=== PATIENT | female | born 1945 | race Caucasian/White ===

== ENCOUNTER → 2016-10-10 | Outpatient (CLI) | payer MEDICARE, BC ==
--- NOTE | 2016-10-10 13:17 | P.HPOB ---
History of Present Illness H&P Date: 10/10/16 Chief Complaint: The patient is here for her routine gynecologic exam and mammogram. This is a 71-year-old with an LMP of 1989. Her last pelvic exam was about 4 years ago. She denies any postmenopausal bleeding or pelvic pain. [facility]. She had an MRI of the lumbar spine without contrast on 08/14/2016. This did show a possible left ovarian cyst measuring approximately 3.6 cm. Review of Systems The patient has lost about 17 pounds since she was last here 4 years ago. She believes she gained about 20 pounds recently after being started on Lyrica. She denies respiratory cardiac or G.I. problems. She also denies maltreatment or falling. She denies any significant urinary leakage. Past Medical History Past Medical History: CVA/TIA, Fibromyalgia, GERD/Reflux, Hearing Disorder / Deafness, Osteoarthritis (OA), Rheumatoid Arthritis (RA) Additional Past Medical History / Comment(s): hx -sarcoidosis, TIA 3 yrs ago, pain in back and left shoulder, has [place] braces on feet-uses a cane. Also history of glaucoma and osteoporosis. She is status post greater than 3 years of Reclast bisphosphonate use. History of Any Multi-Drug Resistant Organisms: None Reported Past Surgical History: Heart Catheterization, Orthopedic Surgery Additional Past Surgical History / Comment(s): left knee replacement, sinus surgery. Also laser eye surgery for glaucoma and colonoscopy in approximately 2008. Past Anesthesia/Blood Transfusion Reactions: Postoperative Nausea & Vomiting ( PONV) Smoking Status: Never smoker Past Alcohol Use History: None Reported Past Drug Use History: None Reported Additional History: She has been since 1967 and is sexually active. - Past Family History Sister(s) Family Medical History: Cancer (She hashad 3 sisters with cancer. One had breast cancer, another colon cancer and a 3rd had some type of cancer of the brain.) Father Family Medical History: Cancer Mother Family Medical History: GI Bleed Brother(s) Family Medical History: Coronary Artery Disease (CAD) Medications and Allergies Home Medications Medication Instructions Recorded Confirmed Type Aspirin EC [Ecotrin] 325 mg PO DAILY 07/30/13 10/06/15 History Multivitamins, Thera [Multivitamin 1 tab PO DAILY 07/30/13 10/06/15 History (formulary)] Omeprazole [PriLOSEC] 40 mg PO AC-BRKFST 07/30/13 10/06/15 History Cetirizine HCl [Zyrtec] 10 mg PO DAILY 09/29/15 10/06/15 History HYDROcodone/APAP 5-325MG [[place] 1 tab PO Q4HR PRN 09/29/15 10/06/15 History 5-325] Pregabalin [Lyrica] 100 mg PO BID 09/29/15 10/06/15 History Allergies Allergy/AdvReac Type Severity Reaction Status Date / Time Penicillins Allergy Unknown Verified 10/06/15 07:04 narcotics AdvReac Vomiting Uncoded 09/29/15 11:46 Exam - Vital Signs Vital signs: Blood pressure 136/86, height 5'3", weight 183 pounds, temperature 97.9, pulse 90 This is a well-developed well-nourished white female who is alert and oriented times 3 in no acute distress. HEENT: Within normal limits. NECK: Supple without mass or thyromegaly. CHEST AND LUNGS: Clear to auscultation. HEART: Regular rate and rhythm. BREASTS: Are without mass or discharge. AXILLARY EXAM: Negative for adenopathy. BACK: Negative for CVA tenderness. ABDOMEN: Soft, nontender, without palpable masses. PELVIC EXAM: Normal external genitalia with mild to moderate atrophy. Cervix appear normal . There is a grade 2 cystocele which is stable from her previous exam. There is mild to moderate vaginal atrophy. There is no unusual discharge. The uterus is midposition, nongravid size and nontender. There are no palpable adnexal masses or tenderness. RECTAL EXAM: recto vaginal exam is negative for mass or tenderness and is negative for occult blood. EXTREMITIES: Nontender. IMPRESSION: 1. 71-year-old menopausal female with stable grade 2 cystocele. 2. 3.6 cm left ovarian cyst by MRI. This is asymptomatic. 3. History of osteoporosis PLAN: 1. Pap smear was performed. 2. Self breast examination was discussed. 3. Mammogram will be done today. 4. Pelvic ultrasound will be done today. 5. If ultrasound confirms ovarian cyst, Ca- 25 will be drawn. 6. The patient is get flu shots in the fall. 7. Patient will return in one year and PRN
--- NOTE | 2016-10-10 16:10 | US ---
EXAMINATION TYPE: US pelvis complete transvag DATE OF EXAM: 10/10/2016 COMPARISON: Correlation outside MRI lumbar spine 08/14/2016 CLINICAL HISTORY: 71-year-old female N83.20 OVARIAN CYST. MRI showed left ovarian cyst, no symptoms p er patient, patient tried to fill bladder for 2 hours and we supplemented with TV TECHNIQUE: TA and TV Date of LMP: 30yrs ago FINDINGS: Uterus: Retroverted measuring 5.7 x 3.4 x 3.5 cm Endometrial Stripe: 0.4 cm, within normal limits. Right Ovary: Not visualized. Left Ovary: 4.2 x 3.9 x 4.1cm, enlarged secondary to a simple cyst measuring 4.4 x 3.9 cm. There may be some overestimation. No suspicious internal complexity or nodularity seen. No pelvic free fluid. IMPRESSION: 1. A 4.4 x 3.9 cm simple cyst within the left ovary. For a postmenopausal female, consensus guideline s recommend annual ultrasound surveillance for a cyst of this size. 2. Right ovary could not be visualized. 3. Retroverted uterus with thin endometrial stripe.
--- NOTE | 2016-10-11 09:47 | MM ---
Reason for exam: screening (asymptomatic). Last mammogram was performed 2 years and 7 months ago. History: Patient is postmenopausal. Family history of breast cancer in sister at age 61. Taking estrogen for 1 year beginning at age 60. Physical Findings: A clinical breast exam by your physician is recommended on an annual basis and results should be correlated with mammographic findings. MG 3D Screening Mammo W/Cad Bilateral CC and MLO view(s) were taken. Prior study comparison: March 03, 2014, bilateral MG screening mammo w CAD. January 27, 2013, bilateral digital screening mammo w/CAD. November 06, 2011, bilateral digital screening mammo w/CAD. There are scattered fibroglandular densities. No significant changes when compared with prior studies. ASSESSMENT: Benign, BI-RAD 2 RECOMMENDATION: Routine screening mammogram of both breasts in 1 year.
== END | disposition home or self-care (01) ==
LOC: RADUSWWP 10-03 15:25
PROVIDERS: ATTEND Obstetrics & Gynecology
DX: Z12.31 Encounter for screening mammogram for malignant neoplasm of breast (principal); N83.202 Unspecified ovarian cyst, left side; N85.4 Malposition of uterus
CPT/HCPCS: 77063; 76856; 76830; G0202

== ENCOUNTER → 2016-10-22 | Outpatient (CLI) | payer MEDICARE, BC | END | disposition home or self-care (01) | LOC: LABWHC1 14:26 | PROVIDERS: ATTEND Obstetrics & Gynecology | DX: N83.209 Unspecified ovarian cyst, unspecified side (principal) | CPT/HCPCS: 36415; 86304 ==

== ENCOUNTER → 2017-04-23 | Outpatient (CLI) | payer MEDICARE, BC ==
--- NOTE | 2017-04-23 15:09 | US ---
EXAMINATION TYPE: US pelvic complete DATE OF EXAM: 04/23/2017 COMPARISON: 10/10/2016 CLINICAL HISTORY: 72-year-old female Previous ovarian cyst lt side N83.20. TECHNIQUE: Transabdominal (TA). Date of LMP: postmenopausal FINDINGS: Uterus: Anteverted measuring 6.0 x 2.0 x 4.1 cm Endometrial Stripe: 0.3 cm, within normal limits. Right Ovary: not visualized Left Ovary: 4.6 x 4.1 x 4.4 cm with a 4.4 x 3.3 x 3.0 cm simple cyst. No internal complexity is seen . Previously, this measured 4.4 x 3.9 cm. No evident adnexal abnormality or cul-de-sac free fluid. IMPRESSION: 1. A 4.4 cm simple left ovarian cyst unchanged for 6 months. For a postmenopausal female, annual ultr asound surveillance can be performed. 2. Right ovary, again, could not be visualized.
== END | disposition home or self-care (01) ==
LOC: RADUSWWP 13:30
PROVIDERS: ATTEND Obstetrics & Gynecology
DX: N83.202 Unspecified ovarian cyst, left side (principal); Z78.0 Asymptomatic menopausal state
CPT/HCPCS: 76856

== ENCOUNTER → 2017-05-28 | Outpatient (CLI) | payer MEDICARE, BC ==
[2017-05-28 10:07] LABS: Basophils # (A) 0.1 k/uL (0-0.2); Basophils % (A) 1 %; Eosinophils # (A) 0.1 k/uL (0-0.7); Eosinophils % (A) 3 %; HCT 39.7 % (34.0-46.0); HGB 13.3 gm/dL (11.4-16.0); Lymphocytes # (A) 1.7 k/uL (1.0-4.8); Lymphocytes % (A) 39 %; MCH 29.6 pg (25.0-35.0); MCHC 33.5 g/dL (31.0-37.0); MCV 88.4 fL (80.0-100.0); Mean Platelet Volume 8.6; Monocytes # (A) 0.3 k/uL (0-1.0); Monocytes % (A) 8 %; Neutrophils % (A) 47 %; Platelet Count 184 k/uL (150-450); RDW 12.4 % (11.5-15.5); WBC 4.3 k/uL (3.8-10.6)
[2017-05-28 10:23] LABS: ALT 25 U/L (9-52); AST 23 U/L (14-36); Albumin 4.1 g/dL (3.5-5.0); Alkaline Phosphatase 51 U/L (38-126); Anion Gap 13 mmol/L; Blood Urea Nitrogen 21 mg/dL (7-17); Calcium 9.9 mg/dL (8.4-10.2); Carbon Dioxide 28 mmol/L (22-30); Chloride 104 mmol/L (98-107); Cholesterol 216 mg/dL (<200); Glucose 80 mg/dL (74-99); HDL Cholesterol 60 mg/dL (40-60); LDL Cholesterol,Calculated 136 mg/dL (0-99); Potassium 4.4 mmol/L (3.5-5.1); Sodium 145 mmol/L (137-145); Total Bilirubin 0.4 mg/dL (0.2-1.3); Triglycerides 99 mg/dL (<150)
[2017-05-28 10:33] LABS: T4, Free (Free Thyroxine) 0.88 ng/dL (0.78-2.19)
== END | disposition home or self-care (01) ==
LOC: LABWHC1 09:18
PROVIDERS: ATTEND Internal Medicine
DX: Z00.00 Encounter for general adult medical examination without abnormal findings (principal); E78.5 Hyperlipidemia, unspecified; I10 Essential (primary) hypertension; G62.9 Polyneuropathy, unspecified
CPT/HCPCS: 36415; 80053; 80061; 82607; 84439; 84443; 85025

== ENCOUNTER 2017-07-18 14:06 | Observation (INO) | payer MEDICARE, BC ==
[2017-07-18 15:08] LABS: Prothrombin Time 9.9 sec (9.0-12.0)
[2017-07-18 15:09] LABS: ALT 34 U/L (9-52); AST 28 U/L (14-36); Albumin 4.2 g/dL (3.5-5.0); Alkaline Phosphatase 51 U/L (38-126); Anion Gap 12 mmol/L; Blood Urea Nitrogen 21 mg/dL (7-17); Calcium 9.7 mg/dL (8.4-10.2); Carbon Dioxide 27 mmol/L (22-30); Chloride 105 mmol/L (98-107); Glucose 87 mg/dL (74-99); Potassium 4.1 mmol/L (3.5-5.1); Sodium 144 mmol/L (137-145); Total Bilirubin 0.4 mg/dL (0.2-1.3); Total Protein 6.9 g/dL (6.3-8.2)
[2017-07-18 15:21] LABS: Creatine Kinase 74 U/L (30-135)
[2017-07-18 15:34] LABS: Creatine Kinase MB 1.5 ng/mL (0.0-2.4); Troponin I <0.012 ng/mL (0.000-0.034)
--- NOTE | 2017-07-18 16:27 | ED ---
Chest Pain HPI - General Chief Complaint: Chest Pain Stated Complaint: chest pain Time Seen by Provider: 07/18/17 15:47 Source: patient, RN notes reviewed, old records reviewed Mode of arrival: wheelchair Limitations: no limitations - History of Present Illness Initial Comments: 72-year-old female presents emergency room with a sudden onset of chest pain. She reports she was sitting home. She states that she had itch pain radiating to her jaw and back. Patient has had a history of cardiac catheterization 2 years ago. She reports that the pain is eased up at this time. She just complains mild jaw pain. She states that when the pain was sharp and severe she wanted to take a nitro. She states that her brought her here but she did not receive a nitro.Patient denies any recent fever, chills, shortness of breath, chest pain, back pain, abdominal pain, nausea vomiting, numbness or tingling, dysuria or hematuria, constipation or diarrhea, headaches or visual changes, or any other current symptoms - Related Data Home Medications Medication Instructions Recorded Confirmed Aspirin EC [Ecotrin] 325 mg PO DAILY 07/30/13 07/18/17 Multivitamins, Thera [Multivitamin 1 tab PO DAILY 07/30/13 07/18/17 (formulary)] Omeprazole [PriLOSEC] 60 mg PO AC-BRKFST 07/30/13 07/18/17 Cetirizine HCl [Zyrtec] 10 mg PO DAILY 09/29/15 07/18/17 HYDROcodone/APAP 5-325MG [[place] 1 tab PO Q4HR PRN 09/29/15 07/18/17 5-325] Pregabalin [Lyrica] 100 mg PO BID 09/29/15 07/18/17 Ascorbic Acid [Vitamin C] 500 mg PO DAILY 07/18/17 07/18/17 Cholecalciferol [Vitamin D3] 400 unit PO DAILY 07/18/17 07/18/17 Magnesium Oxide [Magox 400] 400 mg PO DAILY 07/18/17 07/18/17 [place]-3 Fatty Acids/Fish Oil [Fish 1 cap PO DAILY 07/18/17 07/18/17 Oil 1,000 mg Softgel] Allergies Allergy/AdvReac Type Severity Reaction Status Date / Time Penicillins Allergy Unknown Verified 07/18/17 16:09 narcotics AdvReac Vomiting Uncoded 07/18/17 14:10 Review of Systems ROS Statement: Those systems with pertinent positive or pertinent negative responses have been documented in the HPI. ROS Other: All systems not noted in ROS Statement are negative. EKG Findings - EKG Comments: EKG Findings:: EKG performed at 1443 shows sinus rhythm with normal EKG noted. Ventricular rate of 72 bpm. TX interval 198 ms. QRS ration 92. QT QTc is 400 /438. Past Medical History Past Medical History: CVA/TIA, Fibromyalgia, GERD/Reflux, Hearing Disorder / Deafness, Osteoarthritis (OA), Rheumatoid Arthritis (RA) Additional Past Medical History / Comment(s): hx -sarcoidosis, TIA 3 yrs ago, pain in back and left shoulder, has [place] braces on feet-uses a cane. Also history of glaucoma and osteoporosis. She is status post greater than 3 years of Reclast bisphosphonate use. History of Any Multi-Drug Resistant Organisms: None Reported Past Surgical History: Heart Catheterization, Orthopedic Surgery Additional Past Surgical History / Comment(s): left knee replacement, sinus surgery. Also laser eye surgery for glaucoma and colonoscopy in approximately 2008. Past Anesthesia/Blood Transfusion Reactions: Postoperative Nausea & Vomiting ( PONV) Past Psychological History: No Psychological Hx Reported Smoking Status: Never smoker Past Alcohol Use History: None Reported Past Drug Use History: None Reported - Past Family History Sister(s) Family Medical History: Cancer (She hashad 3 sisters with cancer. One had breast cancer, another colon cancer and a 3rd had some type of cancer of the brain.) Father Family Medical History: Cancer Mother Family Medical History: GI Bleed Brother(s) Family Medical History: Coronary Artery Disease (CAD) General Exam - General Exam Comments Initial Comments: 72-year-old female. Alert. No acute distress. Limitations: no limitations General appearance: alert, in no apparent distress Head exam: Present: atraumatic, normocephalic, normal inspection Eye exam: Present: normal appearance, PERRL, EOMI. Absent: scleral icterus, conjunctival injection, periorbital swelling ENT exam: Present: normal exam, mucous membranes moist Neck exam: Present: normal inspection. Absent: tenderness, meningismus, lymphadenopathy Respiratory exam: Present: normal lung sounds bilaterally. Absent: respiratory distress, wheezes, rales, rhonchi, stridor Cardiovascular Exam: Present: regular rate, normal rhythm, normal heart sounds. Absent: systolic murmur, diastolic murmur, rubs, gallop, clicks Extremities exam: Present: normal inspection, full ROM, normal capillary refill. Absent: tenderness, pedal edema, joint swelling, calf tenderness Back exam: Present: normal inspection Neurological exam: Present: alert, oriented X3, CN II-XII intact Psychiatric exam: Present: normal affect, normal mood Skin exam: Present: warm, dry, intact, normal color. Absent: rash Course Vital Signs 07/18/17 07/18/17 14:08 15:51 Temperature 97.0 F L Pulse Rate 83 74 Respiratory 20 17 Rate Blood Pressure 177/85 164/74 O2 Sat by Pulse 98 99 Oximetry Chest Pain MDM - MDM 72 female presents today with chest pain radiating up to her jaw and back. At this time patient was EKG was reviewed and normal. Normal troponin at this time. She did have an stress protocol. The repeated troponin when she was back into the emergency department. This was negative as well. She reports that her pain is somewhat diminishing but still there and her jaw and her back. Patient did have a cardiac cath 2 years ago. Discussed case with Dr. Pierson. Would like to admit the patient for observation. Consult cardiology. Chest x-ray shows chronic changes, notice any acute cardiopulmonary process. Disposition Clinical Impression: Chest pain Disposition: HOME SELF-CARE Condition: Good Instructions: Chest Pain (ED) Is patient prescribed a controlled substance at d/c from ED?: No If prescribed controlled substance>3 days was MAPS reviewed?: No When asked, does pt state using other controlled substances?: No Referrals: Batsheva Johnson MD [Primary Care Provider] - 1-2 days Time of Disposition: 18:34
--- NOTE | 2017-07-18 16:28 | XR ---
EXAMINATION TYPE: XR chest 2V DATE OF EXAM: 07/18/2017 COMPARISON: 06/18/2014 HISTORY: Chest pain and back pain TECHNIQUE: Frontal and lateral views of the chest are obtained. FINDINGS: There is no focal air space opacity, pleural effusion, or pneumothorax seen. Chronic right midlung platelike atelectasis is seen dating back to 06/18/2014. The cardiac silhouette size is withi n normal limits. The osseous structures are intact. There is mild generalized osseous demineralizat ion. IMPRESSION: Chronic changes with no acute cardiopulmonary process.
[2017-07-18 16:30] LABS: Basophils % (A) 1 %; Eosinophils # (A) 0.1 k/uL (0-0.7); Eosinophils % (A) 2 %; HGB 13.7 gm/dL (11.4-16.0); Lymphocytes # (A) 2.3 k/uL (1.0-4.8); Lymphocytes % (A) 38 %; MCH 30.5 pg (25.0-35.0); MCHC 34.2 g/dL (31.0-37.0); MCV 89.3 fL (80.0-100.0); Mean Platelet Volume 8.7; Monocytes # (A) 0.4 k/uL (0-1.0); Monocytes % (A) 7 %; Neutrophils % (A) 50 %; Platelet Count 182 k/uL (150-450); RBC 4.48 m/uL (3.80-5.40); RDW 12.8 % (11.5-15.5); WBC 6.1 k/uL (3.8-10.6)
[2017-07-18] MEDS ORDERED: ASPIRIN 81 MG PO STA (17:13)
[2017-07-18] MEDS ORDERED: NITROGLYCERIN SL TABS 0.4 MG TAB SUBLINGUAL PRN (18:37)
[2017-07-18] MEDS ORDERED: MORPHINE SULFATE 4 MG/ML SYRINGE IVP PRN (18:37)
[2017-07-18] MEDS: HYDROcodone/APAP 5-325MG 1 EACH TAB PO PRN (20:41)
[2017-07-18] MEDS: PREGABALIN 100 MG CAP PO SCH (20:41)
[2017-07-18] MEDS ORDERED: METOPROLOL TARTRATE 25 MG TAB PO SCH (21:00)
[2017-07-18 22:06] LABS: Creatine Kinase 66 U/L (30-135)
[2017-07-18 22:18] LABS: Creatine Kinase MB 1.1 ng/mL (0.0-2.4); Troponin I <0.012 ng/mL (0.000-0.034)
[2017-07-19] MEDS: HYDROcodone/APAP 5-325MG 1 EACH TAB PO PRN ×2 (02:44→11:58)
[2017-07-19 03:18] LABS: Cholesterol 175 mg/dL (<200); HDL Cholesterol 51 mg/dL (40-60); LDL Cholesterol,Calculated 105 mg/dL (0-99); Triglycerides 96 mg/dL (<150)
[2017-07-19 03:22] LABS: Creatine Kinase 58 U/L (30-135)
[2017-07-19 03:35] LABS: Troponin I <0.012 ng/mL (0.000-0.034)
[2017-07-19] MEDS ORDERED: PANTOPRAZOLE 40 MG TABLET PO SCH (07:30)
[2017-07-19] MEDS ORDERED: HEPARIN SODIUM,PORCINE 5,000 UNIT/ML 1 ML VIAL ONE (07:58)
[2017-07-19 08:16] VITALS: RESP 16
[2017-07-19] MEDS ORDERED: NON-FORMULARY DRUG (Omega-3 Fatty Acids/Fish Oil [Fish Oil 1,000 Mg Softgel] 1 CAP) PO SCH (09:00)
[2017-07-19] MEDS ORDERED: ASPIRIN 81 MG PO SCH (09:00)
[2017-07-19] MEDS ORDERED: NON-FORMULARY DRUG (Aspirin Ec 325 MG) PO SCH (09:00)
[2017-07-19] MEDS ORDERED: LORATADINE 10 MG TAB PO SCH (09:00)
[2017-07-19] MEDS ORDERED: CHOLECALCIFEROL 400 UNIT TAB PO SCH (09:00)
[2017-07-19] MEDS ORDERED: MAGNESIUM OXIDE 400 MG TAB PO SCH (09:00)
[2017-07-19] MEDS ORDERED: ASPIRIN 325 MG TAB PO SCH (09:00)
[2017-07-19] MEDS ORDERED: ATORVASTATIN 40 MG TAB PO SCH (09:00)
[2017-07-19] MEDS ORDERED: ASCORBIC ACID 500 MG TAB PO SCH (09:00)
[2017-07-19] MEDS ORDERED: ATORVASTATIN 20 MG TAB PO SCH (09:00)
[2017-07-19] MEDS ORDERED: AMINOPHYLLINE 500 MG/20 ML VIAL IV PRN (09:09)
[2017-07-19] MEDS ORDERED: REGADENOSON 0.4 MG/5 ML SYRINGE IV ONE (09:09)
--- NOTE | 2017-07-19 09:28 | P.CRDCN ---
History of Present Illness History of present illness: Atypical chest discomfort normal chronic enzymes normal ECG known coronary artery disease. Proceed with Lexiscan cardio lyte stress test today. Further management thereafter. She needs to be in a baby aspirin and statins. LDL is greater than 100 and goal: Is closer to 70 mg/dL Past Medical History Past Medical History: Coronary Artery Disease (CAD), CVA/TIA, Fibromyalgia, GERD /Reflux, Hearing Disorder / Deafness, Osteoarthritis (OA), Rheumatoid Arthritis (RA) Additional Past Medical History / Comment(s): hx -sarcoidosis, TIA 3 yrs ago, pain in back and left shoulder, has [place]ney braces on feet d/t fallen arches- uses a cane.wears lolis hearing aids, has lower bridge. Also history of glaucoma (had laser eye sx). She is status post greater than 3 years of Reclast bisphosphonate use.hx osteoporosis. small cataract rt eye,seasonal allergies. pt stated she has had a pne vaccine years ago but unsure of date. unable to verify date-dr office closed at time of this admit. History of Any Multi-Drug Resistant Organisms: None Reported Past Surgical History: Heart Catheterization, Orthopedic Surgery Additional Past Surgical History / Comment(s): left knee replacement, sinus surgery. Also laser eye surgery for glaucoma and colonoscopy in approximately 2008. Past Anesthesia/Blood Transfusion Reactions: Postoperative Nausea & Vomiting ( PONV) Smoking Status: Former smoker - Past Family History Sister(s) Family Medical History: Cancer Father Family Medical History: Cancer Mother Family Medical History: GI Bleed Brother(s) Family Medical History: Coronary Artery Disease (CAD) Medications and Allergies Home Medications Medication Instructions Recorded Confirmed Type RX: Aspirin EC [Ecotrin] 325 mg PO DAILY 07/30/13 07/18/17 History RX: Multivitamins, Thera 1 tab PO DAILY 07/30/13 07/18/17 History [Multivitamin (formulary)] RX: Omeprazole [PriLOSEC] 60 mg PO AC-BRKFST 07/30/13 07/18/17 History RX: Cetirizine HCl [Zyrtec] 10 mg PO DAILY 09/29/15 07/18/17 History RX: HYDROcodone/APAP 5-325MG 1 tab PO Q4HR PRN 09/29/15 07/18/17 History [[place] 5-325] RX: Pregabalin [Lyrica] 100 mg PO BID 09/29/15 07/18/17 History Ascorbic Acid [Vitamin C] 500 mg PO DAILY 07/18/17 07/18/17 History Cholecalciferol [Vitamin D3] 400 unit PO DAILY 07/18/17 07/18/17 History Magnesium Oxide [Magox 400] 400 mg PO DAILY 07/18/17 07/18/17 History [place]-3 Fatty Acids/Fish Oil [Fish 1 cap PO DAILY 07/18/17 07/18/17 History Oil 1,000 mg Softgel] Allergies Allergy/AdvReac Type Severity Reaction Status Date / Time Penicillins Allergy Unknown Verified 07/18/17 20:35 narcotics AdvReac Vomiting Uncoded 07/18/17 20:35 Physical Exam Vitals: Vital Signs Temp Pulse Pulse Resp BP BP Pulse Ox 07/19/17 08:00 98.2 F 76 16 139/67 94 L 07/19/17 03:35 18 07/19/17 03:34 97.8 F 68 18 150/63 96 07/19/17 00:00 98.3 F 76 18 131/60 93 L 07/18/17 21:35 18 07/18/17 19:36 97.6 F 80 18 156/70 96 07/18/17 18:51 97.1 F L 07/18/17 18:38 70 17 154/68 97 07/18/17 15:51 74 17 164/74 99 07/18/17 14:08 97.0 F L 83 20 177/85 98 Intake and Output 07/18/17 07/19/17 07/19/17 22:59 06:59 14:59 Other: Voiding Method Toilet Toilet # Voids 2 2 Weight 87.3 kg Results 07/18/17 14:47 07/18/17 14:47 Cardiac Enzymes 07/18/17 07/18/17 07/18/17 Range/Units 14:47 14:47 16:35 AST 28 (14-36) U/L CK-MB (CK-2) 1.5 (0.0-2.4) ng/mL Troponin I <0.012 <0.012 (0.000-0.034) ng/mL 07/18/17 07/19/17 Range/Units 21:31 02:37 AST (14-36) U/L CK-MB (CK-2) 1.1 1.0 (0.0-2.4) ng/mL Troponin I <0.012 <0.012 (0.000-0.034) ng/mL Coagulation 07/18/17 Range/Units 14:47 PT 9.9 (9.0-12.0) sec APTT 24.0 (22.0-30.0) sec Lipids 07/19/17 Range/Units 02:37 Triglycerides 96 (<150) mg/dL Cholesterol 175 (<200) mg/dL HDL Cholesterol 51 (40-60) mg/dL CBC 07/18/17 Range/Units 14:47 WBC 6.1 (3.8-10.6) k/uL RBC 4.48 (3.80-5.40) m/uL Hgb 13.7 (11.4-16.0) gm/dL Hct 40.0 (34.0-46.0) % Plt Count 182 (150-450) k/uL Comprehensive Metabolic Panel 07/18/17 Range/Units 14:47 Sodium 144 (137-145) mmol/L Potassium 4.1 (3.5-5.1) mmol/L Chloride 105 (98-107) mmol/L Carbon Dioxide 27 (22-30) mmol/L BUN 21 H (7-17) mg/dL Creatinine 0.70 (0.52-1.04) mg/dL Glucose 87 (74-99) mg/dL Calcium 9.7 (8.4-10.2) mg/dL AST 28 (14-36) U/L ALT 34 (9-52) U/L Alkaline Phosphatase 51 (38-126) U/L Total Protein 6.9 (6.3-8.2) g/dL Albumin 4.2 (3.5-5.0) g/dL Current Medications Generic Name Dose Route Start Last Admin Trade Name Freq PRN Reason Stop Dose Admin Hydrocodone Bitart/Acetaminophen 1 each 07/18/17 18:34 07/19/17 02:44 [place] 5-325 PO 1 each Q4HR PRN Administration Pain Aminophylline 100 mg 07/19/17 09:09 Aminophylline IV 07/19/17 23:00 ONCE PRN Patient Response Ascorbic Acid 500 mg 07/19/17 09:00 Vitamin C PO DAILY [facility] Aspirin 81 mg 07/19/17 09:00 Aspirin PO DAILY [facility] Atorvastatin Calcium 20 mg 07/19/17 09:00 Lipitor PO DAILY [facility] Cholecalciferol 400 unit 07/19/17 09:00 Vitamin D3 PO DAILY [facility] Loratadine 10 mg 07/19/17 09:00 Claritin PO DAILY [facility] Magnesium Oxide 400 mg 07/19/17 09:00 Mag-Ox PO DAILY [facility] Morphine Sulfate 2 mg 07/18/17 18:37 Morphine Sulfate (Inj) IVP Q5M PRN Chest Pain Multivitamins 1 each 07/19/17 12:00 Theragran PO DAILY@1200 [facility] Nitroglycerin 0.4 mg 07/18/17 18:37 Nitrostat SUBLINGUAL Q5M PRN Chest Pain Pantoprazole Sodium 40 mg 07/19/17 07:30 Protonix PO AC-BRKFST [facility] Pregabalin 100 mg 07/18/17 21:00 07/18/17 20:41 Lyrica PO 100 mg BID [facility] Administration Intake and Output 07/18/17 07/19/17 07/19/17 22:59 06:59 14:59 Other: Voiding Method Toilet Toilet # Voids 2 2 Weight 87.3 kg 07/18/17 14:47 07/18/17 14:47
--- NOTE | 2017-07-19 10:16 | ECHOF ---
Referral Reason: MEASUREMENTS -------- HEIGHT: 160.0 cm WEIGHT: 87.1 kg BP: 139/67 RVIDd: 3.4 cm (< 3.3) IVSd: 1.1 cm (0.6 - 1.1) LVIDd: 5.0 cm (3.9 - 5.3) LVPWd: 1.2 cm (0.6 - 1.1) IVSs: 1.5 cm LVIDs: 3.5 cm LVPWs: 1.4 cm LA Diam: 3.7 cm (2.7 - 3.8) LAESV Index (A-L): 18.76 ml/m Ao Diam: 3.3 cm (2.0 - 3.7) AV Cusp: 1.9 cm (1.5 - 2.6) MV EXCURSION: 12.907 mm (> 18.000) MV EF SLOPE: 52 mm/s (70 - 150) EPSS: 0.8 cm MV E Ryan: 0.72 m/s MV DecT: 214 ms MV A Ryan: 0.90 m/s MV E/A Ratio: 0.80 RAP: 5.00 mmHg RVSP: 30.81 mmHg FINDINGS -------- Sinus rhythm. This was a technically good study. The left ventricular size is normal. There is borderline concentric left ventricular hypertrophy. Overall left ventricular systolic function is normal with, an EF between 60 - 65 %. The right ventricle is mildly enlarged. Normal LA size by volume 22+/-6 ml/m2. The right atrium is normal in size. Aortic valve is trileaflet and is mildly thickened. The mitral valve leaflets are mildly thickened. There is trace mitral regurgitation. Mild tricuspid regurgitation present. Right ventricular systolic pressure is normal at < 35 mmHg. There is no pulmonic regurgitation present. The aortic root size is normal. IVC Not well visulized. There is no pericardial effusion. CONCLUSIONS -------- 1. Sinus rhythm. 2. This was a technically good study. 3. The left ventricular size is normal. 4. There is borderline concentric left ventricular hypertrophy. 5. Overall left ventricular systolic function is normal with, an EF between 60 - 65 %. 6. The right ventricle is mildly enlarged. 7. Normal LA size by volume 22+/-6 ml/m2. 8. The right atrium is normal in size. 9. Aortic valve is trileaflet and is mildly thickened. 10. The mitral valve leaflets are mildly thickened. 11. There is trace mitral regurgitation. 12. Mild tricuspid regurgitation present. 13. Right ventricular systolic pressure is normal at < 35 mmHg. 14. There is no pulmonic regurgitation present. 15. The aortic root size is normal. 16. IVC Not well visulized. 17. There is no pericardial effusion. NEWS REPORTER: Geovanna Hicks RDCS
--- NOTE | 2017-07-19 10:23 | P.CRDCN ---
History of Present Illness Consult date: 07/19/17 History of present illness: Mrs. Masters is a pleasant 72-year-old female past medical history significant for mild non-obstructive coronary artery disease, most recent catheterization performed 10/2015 revealed 30% proximal LAD disease. She was started on imdur at that time but was unable to tolerate secondary to headaches. She also has history of sarcoidosis, rheumatoid arthritis and TIA. She denies history of hypertension, dyslipidemia or diabetes mellitus. She has followed with Dr. Love in the past. We have been asked to see her inconsultation for chest pain. She states yesterday she was doing her typical household errands and routines. She sat down to take a break and she developed a tight sensation in the precordial region that radiated into her back, jaw and left arm. She denies shortness of breath, dizziness, palpitations, nausea, vomiting or diaphoresis. The symptoms lasted approximately 5 minutes and went away on its own with no specific alleviating factors. No further symptoms since admission. She denies PND, orthopnea or cough, fever/chills. EKG reveals sinus mechanism with no acute ST or T-wave abnormalities. Telemetry tracings have been unremarkable. Chest xray negative for an acute cardiopulmonary process. Laboratory data reviewed, hemoglobin 13.7, platelets 182, d-dimer 0.57, sodium 144, potassium 4.1, magnesium 1.9, creatinine 0.7, cardiac enzymes negative 4, LDL 105, HDL 51, total cholesterol 175. Current cardiac medications include aspirin 325 mg. She also takes Lyrica, Prilosec, magnesium oxide, [place] and Zyrtec. Review of Systems At the time of my exam: CONSTITUTIONAL: Denies fever. Denies chills. EYES: Denies blurred vision. Denies vision changes. Denies eye pain. EARS, NOSE, MOUTH & THROAT: Denies headache. Denies sore throat. Denies ear pain. CARDIOVASCULAR: Denies chest pain. Denies shortness of breath. Denies orthopnea. Denies PND. Denies palpitations. RESPIRATORY: Denies cough. GASTROINTESTINAL: Denies abdominal pain. Denies diarrhea. Denies constipation. Denies nausea. Denies vomiting. MUSCULOSKELETAL: Denies myalgias. INTEGUMENTARY: Denies pruitis. Denies rash. NEUROLOGIC: Denies numbness. Denies tingling. Denies weakness. PSYCHIATRIC: Denies anxiety. Denies depression. ENDOCRINE: Denies fatigue. Denies weight change. Denies polydipsia. Denies polyurina. GENITOURINARY: Denies burning, hematuria or urgency with micturation. HEMATOLOGIC: Denies history of anemia. Denies bleeding. Past Medical History Past Medical History: Coronary Artery Disease (CAD), CVA/TIA, Fibromyalgia, GERD /Reflux, Hearing Disorder / Deafness, Osteoarthritis (OA), Rheumatoid Arthritis (RA) Additional Past Medical History / Comment(s): hx -sarcoidosis, TIA 3 yrs ago, pain in back and left shoulder, has rodney braces on feet d/t fallen arches- uses a cane.wears lolis hearing aids, has lower bridge. Also history of glaucoma (had laser eye sx). She is status post greater than 3 years of Reclast bisphosphonate use.hx osteoporosis. small cataract rt eye,seasonal allergies. pt stated she has had a pne vaccine years ago but unsure of date. unable to verify date-dr office closed at time of this admit. History of Any Multi-Drug Resistant Organisms: None Reported Past Surgical History: Heart Catheterization, Orthopedic Surgery Additional Past Surgical History / Comment(s): left knee replacement, sinus surgery. Also laser eye surgery for glaucoma and colonoscopy in approximately 2008. Past Anesthesia/Blood Transfusion Reactions: Postoperative Nausea & Vomiting ( PONV) Smoking Status: Former smoker - Past Family History Sister(s) Family Medical History: Cancer Father Family Medical History: Cancer Mother Family Medical History: GI Bleed Brother(s) Family Medical History: Coronary Artery Disease (CAD) Medications and Allergies Home Medications Medication Instructions Recorded Confirmed Type Aspirin EC [Ecotrin] 325 mg PO DAILY 07/30/13 07/18/17 History Multivitamins, Thera [Multivitamin 1 tab PO DAILY 07/30/13 07/18/17 History (formulary)] Omeprazole [PriLOSEC] 60 mg PO AC-BRKFST 07/30/13 07/18/17 History Cetirizine HCl [Zyrtec] 10 mg PO DAILY 09/29/15 07/18/17 History HYDROcodone/APAP 5-325MG [[place] 1 tab PO Q4HR PRN 09/29/15 07/18/17 History 5-325] Pregabalin [Lyrica] 100 mg PO BID 09/29/15 07/18/17 History Ascorbic Acid [Vitamin C] 500 mg PO DAILY 07/18/17 07/18/17 History Cholecalciferol [Vitamin D3] 400 unit PO DAILY 07/18/17 07/18/17 History Magnesium Oxide [Magox 400] 400 mg PO DAILY 07/18/17 07/18/17 History [place]-3 Fatty Acids/Fish Oil [Fish 1 cap PO DAILY 07/18/17 07/18/17 History Oil 1,000 mg Softgel] Allergies Allergy/AdvReac Type Severity Reaction Status Date / Time Penicillins Allergy Unknown Verified 07/18/17 20:35 narcotics AdvReac Vomiting Uncoded 07/18/17 20:35 Physical Exam Vitals: Vital Signs Temp Pulse Pulse Resp BP BP Pulse Ox 07/19/17 08:00 98.2 F 76 16 139/67 94 L 07/19/17 03:35 18 07/19/17 03:34 97.8 F 68 18 150/63 96 07/19/17 00:00 98.3 F 76 18 131/60 93 L 07/18/17 21:35 18 07/18/17 19:36 97.6 F 80 18 156/70 96 07/18/17 18:51 97.1 F L 07/18/17 18:38 70 17 154/68 97 07/18/17 15:51 74 17 164/74 99 07/18/17 14:08 97.0 F L 83 20 177/85 98 Intake and Output 07/18/17 07/19/17 07/19/17 22:59 06:59 14:59 Other: Voiding Method Toilet Toilet # Voids 2 2 Weight 87.3 kg Blood pressure 139/67 heart rate 76 afebrile maintaining oxygen saturation on room air GENERAL: This is a 72-year-old female in no apparent distress at the time of my examination. HEENT: Head is atraumatic, normocephalic. Pupils are equal, round. Sclerae anicteric. Conjunctivae are clear. Mucous membranes of the mouth are moist. Neck is supple. There is no jugular venous distention. No carotid bruit is heard. LUNGS: Clear to auscultation no wheezes, rales or rhonchi. No chest wall tenderness is noted on palpation or with deep breathing. HEART: Regular rate and rhythm without murmurs, rubs or gallops. S1 and S2 heard. ABDOMEN: Soft, nontender. Bowel sounds are heard. No organomegaly noted. EXTREMITIES: No evidence of peripheral edema and no calf tenderness noted. VASCULAR: Radial and dorsalis pedis pulses palpated, no evidence of clubbing. NEUROLOGIC: Patient is awake, alert and oriented x3. Results 07/18/17 14:47 07/18/17 14:47 Cardiac Enzymes 07/18/17 07/18/17 07/18/17 Range/Units 14:47 14:47 16:35 AST 28 (14-36) U/L CK-MB (CK-2) 1.5 (0.0-2.4) ng/mL Troponin I <0.012 <0.012 (0.000-0.034) ng/mL 07/18/17 07/19/17 Range/Units 21:31 02:37 AST (14-36) U/L CK-MB (CK-2) 1.1 1.0 (0.0-2.4) ng/mL Troponin I <0.012 <0.012 (0.000-0.034) ng/mL Coagulation 07/18/17 Range/Units 14:47 PT 9.9 (9.0-12.0) sec APTT 24.0 (22.0-30.0) sec Lipids 07/19/17 Range/Units 02:37 Triglycerides 96 (<150) mg/dL Cholesterol 175 (<200) mg/dL HDL Cholesterol 51 (40-60) mg/dL CBC 07/18/17 Range/Units 14:47 WBC 6.1 (3.8-10.6) k/uL RBC 4.48 (3.80-5.40) m/uL Hgb 13.7 (11.4-16.0) gm/dL Hct 40.0 (34.0-46.0) % Plt Count 182 (150-450) k/uL Comprehensive Metabolic Panel 07/18/17 Range/Units 14:47 Sodium 144 (137-145) mmol/L Potassium 4.1 (3.5-5.1) mmol/L Chloride 105 (98-107) mmol/L Carbon Dioxide 27 (22-30) mmol/L BUN 21 H (7-17) mg/dL Creatinine 0.70 (0.52-1.04) mg/dL Glucose 87 (74-99) mg/dL Calcium 9.7 (8.4-10.2) mg/dL AST 28 (14-36) U/L ALT 34 (9-52) U/L Alkaline Phosphatase 51 (38-126) U/L Total Protein 6.9 (6.3-8.2) g/dL Albumin 4.2 (3.5-5.0) g/dL Current Medications Generic Name Dose Route Start Last Admin Trade Name Freq PRN Reason Stop Dose Admin Hydrocodone Bitart/Acetaminophen 1 each 07/18/17 18:34 07/19/17 02:44 [place] 5-325 PO 1 each Q4HR PRN Administration Pain Aminophylline 100 mg 07/19/17 09:09 Aminophylline IV 07/19/17 23:00 ONCE PRN Patient Response Ascorbic Acid 500 mg 07/19/17 09:00 Vitamin C PO DAILY [facility] Aspirin 81 mg 07/19/17 09:00 Aspirin PO DAILY [facility] Atorvastatin Calcium 20 mg 07/19/17 09:00 Lipitor PO DAILY [facility] Cholecalciferol 400 unit 07/19/17 09:00 Vitamin D3 PO DAILY [facility] Loratadine 10 mg 07/19/17 09:00 Claritin PO DAILY [facility] Magnesium Oxide 400 mg 07/19/17 09:00 Mag-Ox PO DAILY [facility] Morphine Sulfate 2 mg 07/18/17 18:37 Morphine Sulfate (Inj) IVP Q5M PRN Chest Pain Multivitamins 1 each 07/19/17 12:00 Theragran PO DAILY@1200 [facility] Nitroglycerin 0.4 mg 07/18/17 18:37 Nitrostat SUBLINGUAL Q5M PRN Chest Pain Pantoprazole Sodium 40 mg 07/19/17 07:30 Protonix PO AC-BRKFST [facility] Pregabalin 100 mg 07/18/17 21:00 07/18/17 20:41 Lyrica PO 100 mg BID [facility] Administration Intake and Output 07/18/17 07/19/17 07/19/17 22:59 06:59 14:59 Other: Voiding Method Toilet Toilet # Voids 2 2 Weight 87.3 kg 07/18/17 14:47 07/18/17 14:47 Assessment and Plan Assessment: ASSESSMENT 1. Chest pain, atypical. An acute coronary event has been ruled out with no EKG evidence of ischemia negative cardiac enzymes. 2. History of mild nonobstructive coronary artery disease 3. Dyslipidemia, LDL 105 optimal for this patient with mild coronary artery disease should be less than 70. PLAN Obtain 2-D echocardiogram and Doppler study to assess cardiac structure and function. Perform Lexiscan stress test to assess for reversible cardiac ischemia. Decrease aspirin 81 mg daily. Initiate the patient on atorvastatin 20 mg daily. This plan has been medicated to the patient and she is in agreement. If this stress test is normal she is stable from a cardiac perspective. Follow-up with Dr. Love in 2-3 weeks. Thank you kindly for this consultation. Nurse Practitioner note has been reviewed, I agree with a documented findings and plan of care. Patient was seen and examined.
--- NOTE | 2017-07-19 11:08 | P.STRESS ---
- Stress Test Note Stress Test Results/Findings: Exam Performed: NM stress lexiscan cardiolite Exam Date: 07/19/17 Reason for Exam: CP Height: 5 ft 3 in Weight: 87.09 kg Protocol: LEXISCAN CARDIOLITE Stage: NA Duration of Exercise: NA Resting Heart Rate: 86 Resting Blood Pressure: 138/80 Maximum Achieved Heart Rate: 113 Maximum Achieved Blood Pressure: 139/77 85% PMHR: NA 100% PMHR: NA METS: NA Technologist Comment: Stress Test Results/Findings: No ECG evidence for ischemia or arrhythmia during Lexiscan infusion. Heart rate and blood pressure remained stable. Nuchal portion reported separately
[2017-07-19 11:53] VITALS: BP 165/70; PULSE 81; TEMP 97.7
--- NOTE | 2017-07-19 11:58 | NM ---
EXAMINATION TYPE: NM stress lexiscan cardiolite DATE OF EXAM: 07/19/2017 COMPARISON: NONE HISTORY: Chest pain, palpitations, hyperlipidemia family history of coronary artery disease. TECHNIQUE: After the intravenous administration of 10.5 mCi Tc 99m Sestamibi - Cardiolite resting SP ECT images acquired 50 minutes post injection. The patient received 0.4mg Lexiscan, 26.8 mCi Tc 99m Sestamibi - Stress images obtained [address] injection FINDINGS: Review of stress and rest SPECT images demonstrates no distinct perfusion abnormality. Gated analysi s shows normal wall motion with an estimated left ventricular ejection fraction of 73 %. TID is withi n normal limits at 0.87. IMPRESSION: 1. No scintigraphic evidence for reversible ischemia. 2. Estimated left ventricular ejection fraction of 73%.
[2017-07-19] MEDS ORDERED: MULTIVITAMINS, THERA 1 EACH TAB PO SCH (12:00)
--- NOTE | 2017-07-19 12:36 | P.PN ---
Progress Note - Text Progress Note Date: 07/19/17 Lexiscan stress test is negative for reversible cardiac ischemia. Stable for discharge home, follow-up with Dr. Love in 2 weeks.
[2017-07-19] MEDS: PREGABALIN 100 MG CAP PO SCH (13:44)
--- NOTE | 2017-07-19 15:40 | P.HPIM ---
History of Present Illness pleasant 72-year-old female past medical history significant for mild non-obstructive coronary artery disease, most recent catheterization performed revealed 30% proximal LAD disease. She was started on imdur at that time but was unable to tolerate secondary to headaches. She also has history of sarcoidosis, rheumatoid arthritis and TIA. She denies history of hypertension, dyslipidemia or diabetes mellitus. She has followed with Dr. Love in the past. We have been asked to see her inconsultation for chest pain. She states yesterday she was doing her typical household errands and routines. She sat down to take a break and she developed a tight sensation in the precordial region that radiated into her back, jaw and left arm. She denies shortness of breath, dizziness, palpitations, nausea, vomiting or diaphoresis. The symptoms lasted approximately 5 minutes and went away on its own with no specific alleviating factors. No further symptoms since admission. She denies PND, orthopnea or cough, fever/chills. Patient follows for Dr. Johnson as an outpatient. Patient pain is not related to food not associated with food, not associated with the deep breathing but does go in between the shoulder area. Patient still has her gallbladder. Patient underwent stress test which was negative. Cardiology and pulmonology evaluated the patient. Patient does not have any reproducible chest pain as etiology is not clear it's reasonable to get an ultrasound of the gallbladder to rule out gallbladder pathology contributing to her pain and epigastric throat retrosternal area radiating to back of the shoulder blades. Patient's symptoms are not consistent with gastritis as per the patient. When she had pain it was severe. Now completely resolved Review of Systems REVIEW OF SYSTEMS: CONSTITUTIONAL: No fever, no malaise, no fatigue. HEENT: No recent visual problems or hearing problems. Denied any sore throat. CARDIOVASCULAR: No orthopnea, PND, no palpitations, no syncope. PULMONARY: No shortness of breath, no cough, no hemoptysis. GASTROINTESTINAL: No diarrhea, no nausea, no vomiting, no abdominal pain. Normoactive bowel sounds. NEUROLOGICAL: No headaches, no weakness, no numbness. HEMATOLOGICAL: Denies any bleeding or petechiae. GENITOURINARY: Denies any burning micturition, frequency, or urgency. MUSCULOSKELETAL/RHEUMATOLOGICAL: Denies any joint pain, swelling, or any muscle pain. ENDOCRINE: Denies any polyuria or polydipsia. The rest of the 14-point review of systems is negative. Past Medical History Past Medical History: Coronary Artery Disease (CAD), CVA/TIA, Fibromyalgia, GERD /Reflux, Hearing Disorder / Deafness, Osteoarthritis (OA), Rheumatoid Arthritis (RA) Additional Past Medical History / Comment(s): hx -sarcoidosis, TIA 3 yrs ago, pain in back and left shoulder, has rodney braces on feet d/t fallen arches- uses a cane.wears lolis hearing aids, has lower bridge. Also history of glaucoma (had laser eye sx). She is status post greater than 3 years of Reclast bisphosphonate use.hx osteoporosis. small cataract rt eye,seasonal allergies. pt stated she has had a pne vaccine years ago but unsure of date. unable to verify date-dr office closed at time of this admit. History of Any Multi-Drug Resistant Organisms: None Reported Past Surgical History: Heart Catheterization, Orthopedic Surgery Additional Past Surgical History / Comment(s): left knee replacement, sinus surgery. Also laser eye surgery for glaucoma and colonoscopy in approximately 2008. Past Anesthesia/Blood Transfusion Reactions: Postoperative Nausea & Vomiting ( PONV) Smoking Status: Former smoker - Past Family History Sister(s) Family Medical History: Cancer Father Family Medical History: Cancer Mother Family Medical History: GI Bleed Brother(s) Family Medical History: Coronary Artery Disease (CAD) Medications and Allergies Home Medications Medication Instructions Recorded Confirmed Type Multivitamins, Thera [Multivitamin 1 tab PO DAILY 07/30/13 07/18/17 History (formulary)] Omeprazole [PriLOSEC] 60 mg PO AC-BRKFST 07/30/13 07/18/17 History Cetirizine HCl [Zyrtec] 10 mg PO DAILY 09/29/15 07/18/17 History HYDROcodone/APAP 5-325MG [[place] 1 tab PO Q4HR PRN 09/29/15 07/18/17 History 5-325] Pregabalin [Lyrica] 100 mg PO BID 09/29/15 07/18/17 History Ascorbic Acid [Vitamin C] 500 mg PO DAILY 07/18/17 07/18/17 History Cholecalciferol [Vitamin D3] 400 unit PO DAILY 07/18/17 07/18/17 History Magnesium Oxide [Magox 400] 400 mg PO DAILY 07/18/17 07/18/17 History [place]-3 Fatty Acids/Fish Oil [Fish 1 cap PO DAILY 07/18/17 07/18/17 History Oil 1,000 mg Softgel] Aspirin 81 mg PO DAILY #0 chew 07/19/17 Rx Atorvastatin [Lipitor] 20 mg PO DAILY #30 tab 07/19/17 Rx Allergies Allergy/AdvReac Type Severity Reaction Status Date / Time Penicillins Allergy Unknown Verified 07/18/17 20:35 narcotics AdvReac Vomiting Uncoded 07/18/17 20:35 Physical Exam Vitals: Vital Signs Temp Pulse Pulse Resp BP BP Pulse Ox 07/19/17 11:51 97.7 F 81 16 165/70 94 L 07/19/17 08:00 98.2 F 76 16 139/67 94 L 07/19/17 03:35 18 07/19/17 03:34 97.8 F 68 18 150/63 96 07/19/17 00:00 98.3 F 76 18 131/60 93 L 07/18/17 21:35 18 07/18/17 19:36 97.6 F 80 18 156/70 96 07/18/17 18:51 97.1 F L 07/18/17 18:38 70 17 154/68 97 07/18/17 15:51 74 17 164/74 99 Intake and Output 07/19/17 07/19/17 07/19/17 06:59 14:59 22:59 Other: Voiding Method Toilet # Voids 2 Weight 87.09 kg PHYSICAL EXAMINATION: GENERAL: The patient is alert and oriented x3, not in any acute distress. Well developed, well nourished. HEENT: Pupils are round and equally reacting to light. EOMI. No scleral icterus. No conjunctival pallor. Normocephalic, atraumatic. No pharyngeal erythema. No thyromegaly. CARDIOVASCULAR: S1 and S2 present. No murmurs, rubs, or gallops. PULMONARY: Chest is clear to auscultation, no wheezing or crackles. ABDOMEN: Soft, nontender, nondistended, normoactive bowel sounds. No palpable organomegaly. MUSCULOSKELETAL: No joint swelling or deformity. EXTREMITIES: No cyanosis, clubbing, or pedal edema. NEUROLOGICAL: Gross neurological examination did not reveal any focal deficits. SKIN: No rashes. Results CBC & Chem 7: 07/18/17 14:47 07/18/17 14:47 Labs: Abnormal Lab Results - Last 24 Hours (Table) 07/19/17 Range/Units 02:37 LDL Cholesterol, Calc 105 H (0-99) mg/dL Thrombosis Risk Factor Assmnt - Choose All That Apply Any of the Below Risk Factors Present?: Yes Each Factor Represents 1 point: Obesity (BMI >25) Other Risk Factors: Yes Each Risk Factor Represents 2 Points: Age 61-74 years Other congenital or acquired thrombophilia - If yes, enter type in comment: No Thrombosis Risk Factor Assessment Total Risk Factor Score: 3 Thrombosis Risk Factor Assessment Level: Moderate Risk Assessment and Plan Plan: -Chest pain: Rule out acute coronary syndromes. Patient underwent stress test which did not show any inducible ischemia. We need to rule out gallbladder pathology as mentioned above. Ordered ultrasound of the liver gallbladder to be tested as outpatient as is to be faxed to Dr. Reaves's clinic -Hyperlipidemia -Fibromyalgia Hypogastric dysphagia reflux disease -Rheumatoid arthritis and osteoarthritis history Patient will be discharged today will continue her home medications without any changes.
--- NOTE | 2017-07-19 15:41 | P.DS ---
Providers Date of admission: 07/18/17 18:19 Attending physician: Vega Pulido Consults: 07/18/17 18:37 Consult Physician Urgent Consulting Provider: Jim Love Consult Reason/Comments: Chest pain Do you want consulting provider notified?: Yes, Notify in am Primary care physician: Batsheva Elizabeth [place] Hospital Course: Please refer to my HPI Patient Condition at Discharge: Good Plan - Discharge Summary Discharge Rx Participant: Yes New Discharge Prescriptions: New Aspirin 81 mg PO DAILY #0 chew Atorvastatin [Lipitor] 20 mg PO DAILY #30 tab Discontinued Aspirin EC [Ecotrin] 325 mg PO DAILY No Action Omeprazole [PriLOSEC] 60 mg PO AC-BRKFST Multivitamins, Thera [Multivitamin (formulary)] 1 tab PO DAILY Cetirizine HCl [Zyrtec] 10 mg PO DAILY HYDROcodone/APAP 5-325MG [[place] 5-325] 1 tab PO Q4HR PRN PRN Reason: Pain Pregabalin [Lyrica] 100 mg PO BID Ascorbic Acid [Vitamin C] 500 mg PO DAILY Cholecalciferol [Vitamin D3] 400 unit PO DAILY [place]-3 Fatty Acids/Fish Oil [Fish Oil 1,000 mg Softgel] 1 cap PO DAILY Magnesium Oxide [Magox 400] 400 mg PO DAILY Discharge Medication List Multivitamins, Thera [Multivitamin (formulary)] 1 tab PO DAILY 07/30/13 [History ] Omeprazole [PriLOSEC] 60 mg PO AC-BRKFST 07/30/13 [History] Cetirizine HCl [Zyrtec] 10 mg PO DAILY 09/29/15 [History] HYDROcodone/APAP 5-325MG [[place] 5-325] 1 tab PO Q4HR PRN 09/29/15 [History] Pregabalin [Lyrica] 100 mg PO BID 09/29/15 [History] Ascorbic Acid [Vitamin C] 500 mg PO DAILY 07/18/17 [History] Cholecalciferol [Vitamin D3] 400 unit PO DAILY 07/18/17 [History] Magnesium Oxide [Magox 400] 400 mg PO DAILY 07/18/17 [History] [place]-3 Fatty Acids/Fish Oil [Fish Oil 1,000 mg Softgel] 1 cap PO DAILY [History] Aspirin 81 mg PO DAILY #0 chew 07/19/17 [Rx] Atorvastatin [Lipitor] 20 mg PO DAILY #30 tab 07/19/17 [Rx] Follow up Appointment(s)/Referral(s): Batsheva Johnson MD [Primary Care Provider] - 07/30/17 4:00 pm Jim Love MD [STAFF PHYSICIAN] - 08/09/17 2:15 pm Patient Instructions/Handouts: Chest Pain (ED) Discharge Disposition: HOME SELF-CARE
--- NOTE | 2017-07-19 16:23 | P.CNPUL ---
History of Present Illness Consult date: 07/19/17 Requesting physician: Marion Ortiz Reason for consult: chest pain, other Chief complaint: Atypical chest pain History of present illness: Dilcia is a 72-year-old white female patient of Dr. Reaves who presented to the emergency department 07/18/2017 with complaints of sternal chest discomfort with radiation to the jaw lasting 10 minutes, with significant intensity, not associated with shortness of breath, diaphoresis, nausea or vomiting. Patient was at home doing some light house chores on 07/18/2017 when she suddenly started experiencing intense chest pain with jaw discomfort. Patient had previous episodes of angina, and her most recent heart catheterization in 2016 revealed mild coronary arteriosclerosis with LAD disease in the range of 30%. EKG and emergency department revealed normal sinus rhythm acute ischemic changes. Chest x-ray showed chronic changes in the right midlung most likely related to her previous history of sarcoidosis, but no evidence of any acute cardiopulmonary process. Lab work was negative for any evidence of leukocytosis , d-dimer was negative, electrolytes and renal profile were within normal limits , troponins negative 4, proBNP was within normal limits at 198, liver enzymes were within normal limits, LDL was elevated at 105. 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 After her episodes of angina, she was thought to have coronary vasospasms, and was started on Imdur, unfortunately she was not able to tolerate it due to headaches. Her episode of precordial chest pain had resolved on its own. Patient denied any palpitations, denied any coughing, denied any fever or chills denied any dyspnea. She underwent Clary-scan stress test today which was negative for any evidence of reversible cardiac ischemia. Patient does have reproducible sternal chest pain to palpation, but the jaw discomfort has resolved. Patient was initiated on atorvastatin 20 mg daily, her aspirin was decreased to 81 mg daily, and she has been cleared for discharge to cardiology with follow-up with Dr. Lomeli in 2-3 weeks. The pulmonary standpoint she denies any active pulmonary issues at this time, lung sounds are clear, she is on room air, with a pulse ox of 94%, hemodynamically stable, afebrile Review of Systems All systems: negative Constitutional: Denies chills, Denies fever Eyes: denies blurred vision, denies pain Ears, nose, mouth and throat: Denies headache, Denies sore throat Cardiovascular: Reports as per HPI, Denies chest pain, Denies shortness of breath Respiratory: Denies cough Gastrointestinal: Denies abdominal pain, Denies diarrhea, Denies nausea, Denies vomiting Genitourinary: Denies dysuria, Denies hematuria Musculoskeletal: Denies myalgias Integumentary: Denies pruritus, Denies rash Neurological: Denies numbness, Denies weakness Psychiatric: Denies anxiety, Denies depression Endocrine: Denies fatigue, Denies weight change Past Medical History Past Medical History: Coronary Artery Disease (CAD), CVA/TIA, Fibromyalgia, GERD /Reflux, Hearing Disorder / Deafness, Osteoarthritis (OA), Rheumatoid Arthritis (RA) Additional Past Medical History / Comment(s): hx -sarcoidosis, TIA 3 yrs ago, pain in back and left shoulder, has rodney braces on feet d/t fallen arches- uses a cane.wears lolis hearing aids, has lower bridge. Also history of glaucoma (had laser eye sx). She is status post greater than 3 years of Reclast bisphosphonate use.hx osteoporosis. small cataract rt eye,seasonal allergies. pt stated she has had a pne vaccine years ago but unsure of date. unable to verify date-dr office closed at time of this admit. History of Any Multi-Drug Resistant Organisms: None Reported Past Surgical History: Heart Catheterization, Orthopedic Surgery Additional Past Surgical History / Comment(s): left knee replacement, sinus surgery. Also laser eye surgery for glaucoma and colonoscopy in approximately 2008. Past Anesthesia/Blood Transfusion Reactions: Postoperative Nausea & Vomiting ( PONV) Smoking Status: Former smoker - Past Family History Sister(s) Family Medical History: Cancer Father Family Medical History: Cancer Mother Family Medical History: GI Bleed Brother(s) Family Medical History: Coronary Artery Disease (CAD) Medications and Allergies Home Medications Medication Instructions Recorded Confirmed Type Multivitamins, Thera [Multivitamin 1 tab PO DAILY 07/30/13 07/18/17 History (formulary)] Omeprazole [PriLOSEC] 60 mg PO AC-BRKFST 07/30/13 07/18/17 History Cetirizine HCl [Zyrtec] 10 mg PO DAILY 09/29/15 07/18/17 History HYDROcodone/APAP 5-325MG [[place] 1 tab PO Q4HR PRN 09/29/15 07/18/17 History 5-325] Pregabalin [Lyrica] 100 mg PO BID 09/29/15 07/18/17 History Ascorbic Acid [Vitamin C] 500 mg PO DAILY 07/18/17 07/18/17 History Cholecalciferol [Vitamin D3] 400 unit PO DAILY 07/18/17 07/18/17 History Magnesium Oxide [Magox 400] 400 mg PO DAILY 07/18/17 07/18/17 History [place]-3 Fatty Acids/Fish Oil [Fish 1 cap PO DAILY 07/18/17 07/18/17 History Oil 1,000 mg Softgel] Aspirin 81 mg PO DAILY #0 chew 07/19/17 Rx Atorvastatin [Lipitor] 20 mg PO DAILY #30 tab 07/19/17 Rx Allergies Allergy/AdvReac Type Severity Reaction Status Date / Time Penicillins Allergy Unknown Verified 07/18/17 20:35 narcotics AdvReac Vomiting Uncoded 07/18/17 20:35 Physical Exam Vitals: Vital Signs Temp Pulse Pulse Resp BP BP Pulse Ox 07/19/17 11:51 97.7 F 81 16 165/70 94 L 07/19/17 08:00 98.2 F 76 16 139/67 94 L 07/19/17 03:35 18 07/19/17 03:34 97.8 F 68 18 150/63 96 07/19/17 00:00 98.3 F 76 18 131/60 93 L 07/18/17 21:35 18 07/18/17 19:36 97.6 F 80 18 156/70 96 07/18/17 18:51 97.1 F L 07/18/17 18:38 70 17 154/68 97 Intake and Output 07/19/17 07/19/17 07/19/17 06:59 14:59 22:59 Other: Voiding Method Toilet # Voids 2 Weight 87.09 kg GENERAL EXAM: Alert, active, comfortable in no apparent distress. HEAD: Normocephalic/atraumatic. EYES: Normal reaction of pupils, equal size. Conjunctiva pink, sclera white. NOSE: Clear with pink turbinates. THROAT: No erythema or exudates. NECK: No masses, no JVD, no thyroid enlargement, no adenopathy. CHEST: No chest wall deformity. Symmetrical expansion. Reproducible chest discomfort to palpation noted LUNGS: Equal air entry with no crackles, wheeze, rhonchi or dullness. CVS: Regular rate and rhythm, normal S1 and S2, no gallops, no murmurs, no rubs ABDOMEN: Soft, nontender. No hepatosplenomegaly, normal bowel sounds, no guarding or rigidity. EXTREMITIES: No clubbing, no edema, no cyanosis, 2+ pulses and upper and lower extremities. MUSCULOSKELETAL: Muscle strength and tone normal. SPINE: No scoliosis or deformity SKIN: No rashes CENTRAL NERVOUS SYSTEM: Alert and oriented -3. No focal deficits, tone is normal in all 4 extremities. PSYCHIATRIC: Alert and oriented -3. Appropriate affect. Intact judgment and insight. Results - Laboratory Findings CBC and BMP: 07/18/17 14:47 07/18/17 14:47 PT/INR, D-dimer PT 9.9 sec (9.0-12.0) 07/18/17 14:47 INR 1.0 (<1.2) 07/18/17 14:47 D-Dimer 0.57 mg/L FEU (<0.60) 07/18/17 14:47 Abnormal lab findings: Abnormal Labs 07/18/17 07/19/17 14:47 02:37 BUN 21 H LDL Cholesterol, Calc 105 H - Diagnostic Findings Chest x-ray: report reviewed, image reviewed Additional studies: Twelve-lead EKG reviewed Assessment and Plan Plan: Assessment: #1. Atypical chest pain, with radiation to the jaw, the patient underwent cardiac evaluation, EKG did not show any acute ischemic changes, troponins were negative 4, echocardiogram revealed preserved left ventricular systolic function with an EF between 60-65%, no evidence of pulmonary hypertension, with only trace mitral and mild tricuspid regurgitation. Chest x-ray was negative for any acute cardiopulmonary process. The chest discomfort is reproducible to palpation, however the element of the jaw discomfort suggest cardiac etiology although no clear-cut evidence of any cardiac abnormality was found, coronary vasospasm is suspected the patient was unable to tolerate nitrates due to significant headaches. Heart catheterization from 2 years ago showed mild CAD in the LAD of 30% #2. Hyperlipidemia #3. Osteoarthritis #4. GERD without esophagitis #5. Lumbar radiculopathy #6. History of pulmonary sarcoidosis, inactive #7. Vitamin D deficiency #8. CVA/TIA #9. Osteoporosis previously on Reclast #10. History of glaucoma, with laser eye surgery Plan: Patient has been cleared for discharge by cardiology, with follow-up with Dr. Lomeli. Has been started on atorvastatin and baby aspirin. Patient is thought to have coronary vasospasms, but unable to tolerate Imdur due to severe headaches. May consider starting the patient on calcium channel blockers, Cardizem 30 mg 3 times daily. From pulmonary standpoint she remains stable, denies any dyspnea, sarcoidosis is inactive. Follow-up with Dr. Reaves in the office I performed a history & physical examination of the patient and discussed their management with my nurse practitioner, Maya Wilson. I reviewed the nurse practitioner's note and agree with the documented findings and plan of care. Lung sounds are clear. The findings and the impression was discussed with the patient. I attest to the documentation by the nurse practitioner. Time with Patient: Greater than 30
== END 2017-07-19 14:47 | disposition home or self-care (01) ==
LOC: EC 14:06 → 3OBS 18:19
PROVIDERS: ADMIT Hospitalist; ATTEND Hospitalist
DX: R07.89 Other chest pain (principal); R07.2 Precordial pain; R68.84 Jaw pain; M79.7 Fibromyalgia; M25.512 Pain in left shoulder; K21.9 Gastro-esophageal reflux disease without esophagitis; H91.90 Unspecified hearing loss, unspecified ear; M19.90 Unspecified osteoarthritis, unspecified site; M06.9 Rheumatoid arthritis, unspecified; M81.0 Age-related osteoporosis without current pathological fracture; I25.10 Atherosclerotic heart disease of native coronary artery without angina pectoris; J30.2 Other seasonal allergic rhinitis; E78.5 Hyperlipidemia, unspecified; E55.9 Vitamin D deficiency, unspecified; R13.10 Dysphagia, unspecified; D86.0 Sarcoidosis of lung; M54.16 Radiculopathy, lumbar region; E66.9 Obesity, unspecified; Z68.34 Body mass index [BMI] 34.0-34.9, adult; Z79.82 Long term (current) use of aspirin; Z79.899 Other long term (current) drug therapy; Z88.0 Allergy status to penicillin; Z88.5 Allergy status to narcotic agent; Z87.891 Personal history of nicotine dependence; Z86.73 Personal history of transient ischemic attack (TIA), and cerebral infarction without residual deficits; Z80.3 Family history of malignant neoplasm of breast; Z80.0 Family history of malignant neoplasm of digestive organs; Z80.8 Family history of malignant neoplasm of other organs or systems
CPT/HCPCS: 99285 ×2; 36415; 93005; 93017; 93306; 85379; 83880; 80061; 80053; 82550 ×2; 82553 ×2; 83735; 84484 ×2; 85025; 85610; 85730; 71046; 78452; G0378 ×2; A9500; J2785

== ENCOUNTER → 2017-08-13 | Outpatient (CLI) | payer MEDICARE, BC ==
--- NOTE | 2017-08-13 10:17 | US ---
EXAMINATION TYPE: US abdomen complete DATE OF EXAM: 08/13/2017 COMPARISON: NONE CLINICAL HISTORY: K80.20 gallstones. Abd pain EXAM MEASUREMENTS: Liver Length: 14.8 cm Gallbladder Wall: 0.1 cm CBD: 0.1 cm Spleen: 10.5 cm Right Kidney: 8.7x3.5x3.6 cm Left Kidney: 8.5x3.9x4.2 cm Pancreas: Limited and is partially obscured by bowel gas. Liver: wnl Gallbladder: wnl Evidence for sonographic Law's sign: No CBD: wnl Spleen: wnl Right Kidney: wnl Left Kidney: wnl Upper IVC: wnl Abd Aorta: wnl The liver is homogenous. The intrahepatic portion of the IVC and proximal abdominal aorta are within normal limits. There is no evidence of cholelithiasis. Common bile duct is unremarkable. The visu alized portions of the pancreas are homogenous. The spleen is unremarkable. Kidneys are symmetric a nd free of hydronephrosis. No renal lesions are seen. IMPRESSION: 1. No acute process.
== END | disposition home or self-care (01) ==
LOC: RADUSWWP 09:38
PROVIDERS: ATTEND Internal Medicine
DX: K80.20 Calculus of gallbladder without cholecystitis without obstruction (principal)
CPT/HCPCS: 76700

== ENCOUNTER → 2017-12-10 | Outpatient (CLI) | payer MEDICARE, BC ==
[2017-12-10 12:08] VITALS: BP 139/81; PULSE 81; TEMP 98; BMI 32.2
--- NOTE | 2017-12-10 12:46 | P.HPOB ---
History of Present Illness H&P Date: 12/10/17 Chief Complaint: The patient is here for her routine gynecologic exam and mammogram. This is a 72-year-old with an LMP of 1989. The patient is without gynecologic complaints and denies any postmenopausal bleeding. Review of Systems Weight has been stable. She denies respiratory or cardiac problems. G.I.: occasional hemorrhoid problems. She denies maltreatment or problems with falling. : she denies any significant problems with urinary leakage. Past Medical History Past Medical History: Coronary Artery Disease (CAD), CVA/TIA, Fibromyalgia, GERD /Reflux, Hearing Disorder / Deafness, Osteoarthritis (OA), Rheumatoid Arthritis (RA) Additional Past Medical History / Comment(s): hx -sarcoidosis, TIA, pain in back and left shoulder, has rodney braces on feet d/t fallen arches-uses a cane.wears lolis hearing aids, has lower bridge. Also history of glaucoma (had laser eye sx). She is status post greater than 3 years of Reclast bisphosphonate use.hx osteoporosis. small cataract rt eye,seasonal allergies. 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 History of Any Multi-Drug Resistant Organisms: None Reported Past Surgical History: Heart Catheterization, Joint Replacement (Total left knee replacement), Orthopedic Surgery Additional Past Surgical History / Comment(s): sinus surgery. Also laser eye surgery for glaucoma and colonoscopy in approximately 2008. Past Anesthesia/Blood Transfusion Reactions: Postoperative Nausea & Vomiting ( PONV) Past Psychological History: No Psychological Hx Reported Smoking Status: Never smoker Past Alcohol Use History: None Reported Past Drug Use History: None Reported Additional History: She's been since 1967. - Past Family History Sister(s) Family Medical History: Cancer (Breast) Additional Family Medical History / Comment(s): 2 other sisters had cancer, one with brain cancer and the other with colon cancer. Father Family Medical History: Cancer Mother Family Medical History: GI Bleed Brother(s) Family Medical History: Coronary Artery Disease (CAD) Medications and Allergies Home Medications Medication Instructions Recorded Confirmed Type Multivitamins, Thera [Multivitamin 1 tab PO DAILY 07/30/13 12/10/17 History (formulary)] Omeprazole [PriLOSEC] 60 mg PO AC-BRKFST 07/30/13 12/10/17 History Cetirizine HCl [Zyrtec] 10 mg PO DAILY 09/29/15 12/10/17 History HYDROcodone/APAP 5-325MG [[place] 1 tab PO Q4HR PRN 09/29/15 12/10/17 History 5-325] Pregabalin [Lyrica] 100 mg PO BID 09/29/15 12/10/17 History Ascorbic Acid [Vitamin C] 500 mg PO DAILY 07/18/17 12/10/17 History Cholecalciferol [Vitamin D3] 400 unit PO DAILY 07/18/17 12/10/17 History Magnesium Oxide [Magox 400] 400 mg PO DAILY 07/18/17 12/10/17 History [place]-3 Fatty Acids/Fish Oil [Fish 1 cap PO DAILY 07/18/17 12/10/17 History Oil 1,000 mg Softgel] Aspirin 81 mg PO DAILY #0 chew 07/19/17 12/10/17 Rx Allergies Allergy/AdvReac Type Severity Reaction Status Date / Time Penicillins Allergy Unknown Verified 12/10/17 12:02 narcotics AdvReac Vomiting Uncoded 12/10/17 12:02 Exam Vital Signs Temp Pulse BP 12/10/17 12:02 98.0 F 81 139/81 Intake and Output 12/09/17 12/10/17 12/10/17 22:59 06:59 14:59 Other: Weight 82.554 kg Height 5'3", BMI 32.2. This is a well-developed well-nourished white female who is alert and oriented times 3 in no acute distress. HEENT: Within normal limits. NECK: Supple without mass or thyromegaly. CHEST AND LUNGS: Clear to auscultation. HEART: Regular rate and rhythm. BREASTS: Are without mass or discharge. AXILLARY EXAM: Negative for adenopathy. BACK: Negative for CVA tenderness. ABDOMEN: Soft, nontender, without palpable masses. PELVIC EXAM: Normal external genitalia with moderate atrophy. Cervix and vagina reveals a grade 2 to 3 cystocele. There is moderate atrophy. There is no significant thickening of the vaginal mucosa and no lesions. The uterus is midposition, nongravid size and nontender. There are no palpable adnexal masses or tenderness. RECTAL EXAM: rectovaginal exam is negative for mass or tenderness and is negative for occult blood. EXTREMITIES: Nontender. IMPRESSION: 1. 72-year-old menopausal female with grade 2 to 3 cystocele and grade 2 uterine prolapse. This is asymptomatic. 2. History of simple left ovarian cyst measuring 4.4 cm detected in October 2016 with a normal CA 125, which is asymptomatic. Repeat ultrasound on 2017 showed a stable simple left ovarian cyst. 3. History of osteoporosis status post request use for greater than 3 years. Most recent bone density test showed osteopenia in 2012. PLAN: 1. Pap smear was deferred since she had a normal one last year. 2. Self breast awareness was discussed with the patient. 3. Remaining mammogram will be done today. 4. Repeat pelvic ultrasound will be done in April 2018 and an order slip was given the patient for this. 5. I've recommended screening colonoscopy since it is been several years. She will talk to her primary care physician about this. 6. Osteoporosis prevention was discussed. I've recommended repealing the bone density testing and the order slip was given to the patient for this. 7. She is planning on getting her flu shot in the near future. 8. She will return in one year.
--- NOTE | 2017-12-11 11:39 | MM ---
Reason for exam: screening (asymptomatic). Last mammogram was performed 1 year and 2 months ago. History: Patient is postmenopausal. Family history of breast cancer in sister at age 61. Taking estrogen for 1 year beginning at age 60. Physical Findings: A clinical breast exam by your physician is recommended on an annual basis and results should be correlated with mammographic findings. MG 3D Screening Mammo W/Cad Bilateral CC and MLO view(s) were taken. Prior study comparison: October 10, 2016, bilateral MG 3d screening mammo w/cad. March 03, 2014, bilateral MG screening mammo w CAD. There are scattered fibroglandular densities. No significant changes when compared with prior studies. ASSESSMENT: Benign, BI-RAD 2 RECOMMENDATION: Routine screening mammogram of both breasts in 1 year.
== END ==
LOC: WWCWWP 11:06
PROVIDERS: ATTEND Obstetrics & Gynecology
DX: Z12.31 Encounter for screening mammogram for malignant neoplasm of breast (principal)
CPT/HCPCS: 77063; 77067

== ENCOUNTER → 2018-04-16 | Outpatient (CLI) | payer MEDICARE, BC ==
[2018-04-16 23:19] LABS: LDL Cholesterol,Calculated 107.8 mg/dL (0.0-131.0); VLDL Calculation 27.2 mg/dL (5.00-40.00)
== END | disposition home or self-care (01) ==
LOC: LABWHC1 16:09
PROVIDERS: ATTEND Nurse Practitioner Adult Health
DX: E78.5 Hyperlipidemia, unspecified (principal)
CPT/HCPCS: 36415; 80061

== ENCOUNTER → 2018-05-14 | Outpatient (CLI) | payer MEDICARE, BC ==
--- NOTE | 2018-05-14 16:16 | US ---
EXAMINATION TYPE: US pelvic complete DATE OF EXAM: 05/14/2018 COMPARISON: Pelvic ultrasound April 23, 2017 CLINICAL HISTORY: N83.0 Ovarian Cyst. Follow up left ovarian cyst TECHNIQUE: Transabdominal (TA). Date of LMP: unknown EXAM MEASUREMENTS: Uterus: 5.7 x 2.0 x 3.8 cm Endometrial Stripe: 0.3 cm Right Ovary: unable to visualize Left Ovary: 4.3 x 5.2 x 4.8 cm 1. Uterus: Anteverted 2. Endometrium: wnl 3. Right Ovary: unable to visualize 4. Left Ovary: cystic area = 3.9 x 4.9 x 3.8cm 5. Bilateral Adnexa: wnl 6. Posterior cul-de-sac: wnl IMPRESSION: There is redemonstration of 4.9 cm thin-walled cyst or cystic lesion in the left ovary, a ccounting for technical differences presumed stable. Persistent abnormal finding in postmenopausal fe male, annual surveillance advised.
--- NOTE | 2018-05-15 06:34 | BD ---
EXAMINATION TYPE: Axial Bone Density DATE OF EXAM: 05/14/2018 COMPARISON: Prior DEXA bone scan January 27, 2013. CLINICAL HISTORY: Postmenopausal female. Height: 63 Weight: 184.0 FRAX RISK QUESTIONS: Alcohol (3 or more units per day): no Family History (Parent hip fracture): no Glucocorticoids (More than 3mos): no (Ex: prednisone, prednisolone, methylprednisolone, dexamethasone, and hydrocortisone). History of Fracture in Adulthood: no Secondary Osteoporosis: 1. Type 1 Diabetes: no 2. Hyperthyroidism: no 3. Menopause before 45: no 4. Malnutrition: no 5. Chronic liver disease: no Rheumatoid Arthritis: yes Current Tobacco Use: no RISK FACTORS HISTORY OF: Family History of Osteoporosis: yes Active: yes Diet low in dairy products/other sources of calcium: yes Postmenopausal woman: age 44 Lost more than 2 inches in height since high school: yes MEDICATIONS: norco. [email or web address] Additional History: pt used to take prolia EXAM MEASUREMENTS: Bone mineral densitometry was performed using the [employer] System. Bone mineral density as measured about the Lumbar spine is: ----- L1-L4(G/cm2): 0.969 T Score Values are as follows: ----- L2: -1.1 ----- L3: -1.5 ----- L4: -1.7 ----- L1-L4: -1.8 Bone mineral density has: increased 1.1 % since study of: 01.27.2013 Bone mineral density about the R hip (g/cm2): 0.904 Bone mineral density about the L hip (g/cm2): 0.874 T Score values are as follows: -----R Neck: -1.0 -----L Neck: -1.2 -----R Total: -0.8 -----L Total: -1.0 Bone mineral density has: decreased -6.2 % since study of: 01.27.2013 IMPRESSION: Osteopenia (T Score between -2.5 and -1) persists in the low back and femoral neck level left hip. There remains slightly increased risk of fracture and the patient may be considered for treatment. Re-Screen 2-5 years. NOTE: T-SCORE=SD OF THE YOUNG ADULT MEAN.
--- NOTE | 2018-05-20 10:41 | P.PN ---
Progress Note - Text Progress Note Date: 05/20/18 OUTPATIENT FOLLOW-UP NOTE TEST(S)/RESULTS: test results from 05/14/2018 include bone density test showing osteopenia and pelvic ultrasound which shows a stable thin-walled left ovarian cyst measuring 4.9 cm. METHOD OF NOTIFICATION: the patient was notified by phone. PATIENT COMMENTS: the patient is happy to hear these results. DIAGNOSIS: osteopenia status post more than 3 years use of request. Stable benign appearing left ovarian cyst after the menopause. DISCUSSION: I have stressed the importance of getting adequate calcium, vitamin D, and regular exercise. She was also instructed to call she is developing the cyst symptoms in the pelvis such as pain or discomfort. PLAN: repeat the bone density testing in 3 years and the pelvic ultrasound will be repeated in one year. She will be due for her annual well woman exam in December of this year.
== END | disposition home or self-care (01) ==
LOC: RADUSWWP 15:24
PROVIDERS: ATTEND Obstetrics & Gynecology
DX: N83.02 Follicular cyst of left ovary (principal); M85.89 Other specified disorders of bone density and structure, multiple sites; Z78.0 Asymptomatic menopausal state
CPT/HCPCS: 76856; 77080

== ENCOUNTER → 2018-09-22 | Outpatient (CLI) | payer MEDICARE, BC | END | disposition home or self-care (01) | LOC: LABWHC1 14:25 | PROVIDERS: ATTEND Otolaryngology | DX: J30.89 Other allergic rhinitis (principal) | CPT/HCPCS: 36415 ==

== ENCOUNTER → 2019-02-17 | Outpatient (CLI) | payer MEDICARE, BC ==
[2019-02-17 10:53] VITALS: BP 110/73; PULSE 89; RESP 18; TEMP 97.8
--- NOTE | 2019-02-17 11:51 | P.HPOB ---
History of Present Illness H&P Date: 02/17/19 Chief Complaint: The patient is here for her routine gynecologic exam and ma mmogram. This is a 74-year-old 002 with an LMP of 1989. The patient is without gynecologic complaints and denies any postmenopausal bleeding. The patient denies any symptoms from the left ovarian cyst which has been followed conservatively since 2017. She had a pelvic ultrasound on 05/14/2018 which showed a 4.9 cm simple left ovarian cyst Review of Systems she has lost about 6 pounds intentionally over the past year. She denies respiratory, cardiac and G.I. problems. She denies maltreatment or problems with falling. : she denies any significant problems with urinary leakage. Past Medical History Past Medical History: Coronary Artery Disease (CAD), CVA/TIA, Fibromyalgia, GERD/Reflux, Hearing Disorder / Deafness, Osteoarthritis (OA), Rheumatoid Arthritis (RA) Additional Past Medical History / Comment(s): hx -sarcoidosis, TIA, pain in back and left shoulder, has rodney braces on feet d/t fallen arches-uses a cane.wears lolis hearing aids, has lower bridge. Also history of glaucoma (had laser eye sx). She is status post greater than 3 years of Reclast bisphosphonate use.hx osteoporosis. small cataract rt eye,seasonal allergies. 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 History of Any Multi-Drug Resistant Organisms: None Reported Past Surgical History: Heart Catheterization, Joint Replacement, Orthopedic Surgery Additional Past Surgical History / Comment(s): sinus surgery. Also laser eye surgery for glaucoma and colonoscopy in approximately 2008. Past Anesthesia/Blood Transfusion Reactions: Postoperative Nausea & Vomiting (PONV) Past Psychological History: No Psychological Hx Reported Smoking Status: Former smoker Past Alcohol Use History: None Reported Additional Past Alcohol Use History / Comment(s): smoked from age 14 to 20, 3-4 cig per day Past Drug Use History: None Reported Additional History: she has been since 1967. - Past Family History Sister(s) Family Medical History: Cancer Additional Family Medical History / Comment(s): breast cancer. 2 other sisters had cancer, one with brain cancer and the other with colon cancer. Father Family Medical History: Cancer Mother Family Medical History: GI Bleed Brother(s) Family Medical History: Coronary Artery Disease (CAD) Medications and Allergies Home Medications Medication Instructions Recorded Confirmed Type Multivitamins, Thera [Multivitamin 1 tab PO DAILY 07/30/13 02/17/19 History (formulary)] Omeprazole [PriLOSEC] 60 mg PO AC-BRKFST 07/30/13 02/17/19 History Cetirizine HCl [Zyrtec] 10 mg PO DAILY 09/29/15 02/17/19 History HYDROcodone/APAP 5-325MG [Gilbert 1 tab PO Q4HR PRN 09/29/15 02/17/19 History 5-325] Pregabalin [Lyrica] 100 mg PO BID 09/29/15 02/17/19 History Ascorbic Acid [Vitamin C] 500 mg PO DAILY 07/18/17 02/17/19 History Cholecalciferol [Vitamin D3] 400 unit PO DAILY 07/18/17 02/17/19 History Magnesium Oxide [Magox 400] 400 mg PO DAILY 07/18/17 02/17/19 History [place]-3 Fatty Acids/Fish Oil [Fish 1 cap PO DAILY 07/18/17 02/17/19 History Oil 1,000 mg Softgel] Aspirin 81 mg PO DAILY #0 chew 07/19/17 02/17/19 Rx Isosorbide Dinitrate 5 mg PO 02/17/19 History Lisinopril [Zestril] 15 mg PO DAILY 02/17/19 02/17/19 History Allergies Allergy/AdvReac Type Severity Reaction Status Date / Time Penicillins Allergy Unknown Verified 02/17/19 10:52 narcotics AdvReac Vomiting Uncoded 02/17/19 10:52 Exam Vital Signs Temp Pulse Resp BP Pulse Ox 02/17/19 10:47 97.8 F 89 18 110/73 94 L Intake and Output 02/16/19 02/17/19 02/17/19 22:59 06:59 14:59 Other: Weight 80.286 kg height 5 feet 3 inches, weight 177 pounds, BMI 31.4. This is a well-developed well-nourished White female who is alert and oriented times 3 in no acute distress. HEENT: Within normal limits. NECK: Supple without mass or thyromegaly. CHEST AND LUNGS: Clear to auscultation. HEART: Regular rate and rhythm. BREASTS: Are without mass or discharge. AXILLARY EXAM: Negative for adenopathy. BACK: Negative for CVA tenderness. ABDOMEN: Soft, nontender, without palpable masses. PELVIC EXAM: Normal external genitalia with moderate atrophy. Cervix and vagina appear normal with mild to moderate atrophy. There is no unusual discharge. There is a stable grade 2 cystocele. The uterus is midposition, nongravid size and nontender. There are no palpable adnexal masses or tenderness. RECTAL EXAM: rectovaginal exam is negative for mass or tenderness and is negative for occult blood. EXTREMITIES: Nontender. IMPRESSION: 1. 74-year-old menopausal female with stable grade 2 cystocele. 2. history of osteopenia status post 3 years use of Reclast bisphosphonate in the past. 3. Asymptomatic benign-appearing left ovarian cyst by ultrasound measuring 4.9 cm. This has been followed conservatively since 2017. PLAN: 1. Pap smear was performed. If this is negative consider discontinuing Pap smears. 2. Self breast awareness was discussed with the patient. 3. screening mammogram will be done today. 4. Osteoporosis prevention was discussed. I have stressed the importance of adequate calcium, vitamin D and regular exercise. Recommended amounts of calcium and vitamin D were also discussed.she had a bone density test done on 05/14/2018. We will plan on repeating this in approximately 2 years. 5. she does receive flu shots in the fall. 6. I have recommended colonoscopy since it is been more than 10 years. She states she will look into doing this. 7. Pelvic ultrasound was recommended and will be done in May 2019. The order slip was given to the patient for this. 8. She was advised to return in one year for her annual well woman exam.
--- NOTE | 2019-02-18 14:02 | MM ---
Reason for exam: screening (asymptomatic). Last mammogram was performed 1 year and 2 months ago. History: Patient is postmenopausal. Family history of breast cancer in sister at age 61. Taking estrogen for 1 year beginning at age 60. Physical Findings: A clinical breast exam by your physician is recommended on an annual basis and results should be correlated with mammographic findings. MG 3D Screening Mammo W/Cad Bilateral CC and MLO view(s) were taken. Prior study comparison: December 10, 2017, bilateral MG 3d screening mammo w/cad. October 10, 2016, bilateral MG 3d screening mammo w/cad. There are scattered fibroglandular densities. Benign appearing bilateral calcifications. Asymmetric breast tissue right upper quadrant, no change from 2014. There is no discrete abnormality. ASSESSMENT: Benign, BI-RAD 2 RECOMMENDATION: Routine screening mammogram of both breasts in 1 year.
== END | disposition home or self-care (01) ==
LOC: WWCWWP 10:33
PROVIDERS: ATTEND Obstetrics & Gynecology
DX: Z12.31 Encounter for screening mammogram for malignant neoplasm of breast (principal)
CPT/HCPCS: 77063; 77067

== ENCOUNTER → 2020-01-19 | Outpatient (CLI) | payer MEDICARE, BC ==
[2020-01-19 12:16] LABS: Basophils # (A) 0.1 k/uL (0-0.2); Basophils % (A) 1 %; Eosinophils # (A) 0.1 k/uL (0-0.7); Eosinophils % (A) 2 %; HCT 37.4 % (34.0-46.0); HGB 12.6 gm/dL (11.4-16.0); Lymphocytes # (A) 1.6 k/uL (1.0-4.8); Lymphocytes % (A) 25 %; MCH 30.8 pg (25.0-35.0); MCHC 33.7 g/dL (31.0-37.0); MCV 91.4 fL (80.0-100.0); Mean Platelet Volume 8.5; Monocytes # (A) 0.4 k/uL (0-1.0); Monocytes % (A) 6 %; Neutrophils # (A) 4.2 k/uL (1.3-7.7); Neutrophils % (A) 65 %; Platelet Count 174 k/uL (150-450); RBC 4.09 m/uL (3.80-5.40); RDW 12.4 % (11.5-15.5); WBC 6.5 k/uL (3.8-10.6)
[2020-01-19 18:37] LABS: African American GFR (CKD) 97.5 (60.0-200.0); Albumin 4.1 g/dL (3.80-4.90); Albumin/Globulin Ratio 1.78 (1.60-3.17); Anion Gap 7.8 mmol/L (4.00-12.00); BUN/Creat Ratio 22.86 Ratio (12.00-20.00); Calcium 9.7 mg/dL (8.7-10.3); Carbon Dioxide 29.2 mmol/L (21.6-31.8); Chol/HDL Ratio 4.04; Globulin 2.3 g/dL (1.6-3.3); LDL Cholesterol,Calculated 133.4 mg/dL (0.0-131.0); Non-African American GFR(CKD) 84.2 (60.0-200.0); Potassium 4.5 mmol/L (3.5-5.5); Total Bilirubin 0.6 mg/dL (0.2-1.2); Total Protein 6.4 g/dL (6.2-8.2); VLDL Calculation 24.6 mg/dL (5.00-40.00)
== END | disposition home or self-care (01) ==
LOC: LABWHC1 09:58
PROVIDERS: ATTEND Internal Medicine
DX: E78.5 Hyperlipidemia, unspecified (principal); E55.9 Vitamin D deficiency, unspecified; I10 Essential (primary) hypertension
CPT/HCPCS: 36415; 80053; 80061; 82306; 84439; 84443; 85025

== ENCOUNTER → 2022-01-05 | Outpatient (CLI) | payer MEDICARE, BC ==
[2022-01-05 14:30] LABS: Basophils # (A) 0.04 X 10*3/uL (0.00-0.10); Eosinophils # (A) 0.13 X 10*3/uL (0.04-0.35); Eosinophils % (A) 3.2 %; Immature Grans, Automated 0.2 %; Lymphocytes # (A) 1.02 X 10*3/uL (0.90-5.00); Lymphocytes % (A) 24.9 %; MCH 29.5 pg (27.0-32.0); MCHC 33.3 g/dL (32.0-37.0); MCV 88.6 fL (80.0-97.0); Mean Platelet Volume 11.2 fL (9.5-12.2); Monocytes # (A) 0.46 X 10*3/uL (0.20-1.00); Monocytes % (A) 11.2 %; NRBC Per 100 WBC 0 /100 WBCS (0.0-0.0); Neutrophils # (A) 2.43 X 10*3/uL (1.80-7.70); Neutrophils % (A) 59.5 %; Platelet Count 197 X 10*3/uL (140-440); RDW 12.2 % (11.5-14.5); WBC 4.09 X 10*3/uL (4.50-10.00)
[2022-01-05 16:29] LABS: African American GFR (CKD) 98.1 (60.0-200.0); Albumin 4.3 g/dL (3.8-4.9); Albumin/Globulin Ratio 1.89 (1.60-3.17); Anion Gap 11.9 mmol/L (10.00-18.00); BUN/Creat Ratio 23.07 Ratio (12.00-20.00); Blood Urea Nitrogen 15.2 mg/dL (9.0-27.0); Calcium 9.3 mg/dL (8.7-10.3); Carbon Dioxide 24.9 mmol/L (20.0-27.5); Globulin 2.3 g/dL (1.6-3.3); Non-African American GFR(CKD) 84.7 (60.0-200.0); Potassium 4.1 mmol/L (3.5-5.5); T4, Free (Free Thyroxine) 1.16 ng/dL (0.800-1.800); Total Bilirubin 0.7 mg/dL (0.30-1.20); Total Protein 6.6 g/dL (6.2-8.2)
[2022-01-06 11:38] LABS: Chol/HDL Ratio 3.81 Ratio; LDL Cholesterol,Calculated 126.5 mg/dL (0.0-131.0)
== END | disposition home or self-care (01) ==
LOC: LABWHC1 08:39
PROVIDERS: ATTEND Internal Medicine
DX: Z00.00 Encounter for general adult medical examination without abnormal findings (principal); E78.5 Hyperlipidemia, unspecified
CPT/HCPCS: 36415; 80053; 80061; 84439; 84443; 85025

== ENCOUNTER → 2022-09-12 | Outpatient (CLI) | payer MEDICARE, BC ==
[2022-09-12 14:10] VITALS: BP 148/76; PULSE 90; RESP 16; TEMP 98.1
--- NOTE | 2022-09-12 15:05 | P.PAINPG ---
PQRS Measure Charge Sheet Comment: HISTORY OF PRESENT ILLNESS: 77 yr old female w daughter at side as a referral from Dr Muñoz presents today w severe and chronic LBP x 30 yrs secondary to DDD, spondylosis and facet arthropathy without myelopathy for evaluation. Pt states pain level is provoked at 5/10 in intensity, constant, localized in the lower lumbar spine, achy in character w shooting pain towards the BLEs. Pain is provoked by over activity. Pain is alleviated by use of a cane for ambulatory assistance, medications (Cobalt), PT was 10 yrs ago, massage therapy was 10 yrs ago, repositioning and rest. PMH: OA, CAD, CVA, Fibromyalgia, GERD, Hearing Disorder, OA, RA, Sarcoidosis PSH: Heart Catheterization, Joint Replacement, Sunus Surgery, Colonoscopy (2008), Laser Glaucoma Surgery SH: History of tobacco use approx 70 yrs ago, No ETOH use, No illicit drug use. since 1967. FH: Sis- Breast CA, Sis- Brain CA, Sis- Colon CA, Fa- CA, Mo- GI Bleed, Bro- CAD All: See list Meds: See list REVIEW OF ORGAN SYSTEMS: CONSTITUTIONAL: No fevers or chills. No recent weight loss. NEUROLOGICAL: + numbness and tingling along the distal extremities. No seizure disorders or headaches. MUSCULOSKELETAL: + pain PSYCHIATRIC: Denies current depression or suicidal thoughts. Physical Examinations : Constitutional : Cooperative , not in acute distress . Neurologic : Cranial nerve II to XII intact. No focal neurological deficits. Psychiatric : alert & oriented x 3. Matching mood & appropriate affect. Judgment & insight intact. Musculoskeletal : Cervical Spine Motor strength in the deltoid and biceps: Normal right side. Normal Left side Motor strength biceps and the wrist extensors: Normal right side . Normal left side Motor strength in the triceps muscle: Normal right side. Normal left side Deep tendon reflexes: Normal at the biceps. Normal at Brachioradialis. Normal at triceps Vertebral body tenderness to deep palpation over Cervical facet loading test: positive bilaterally Spurling test: positive bilaterally Neck distraction test: positive b ilaterally Navya sign: positive bilaterally Lumbar spine Motor strength lower extremities ,thigh and legs 5/5 Right side , 5/5 Left side Deep tendon reflexes : Normal Knee Jerk. Normal Ankle Jerk Vertebral body tenderness over Castellanos Test positive Lumbar facet Loading Test: positive Right / positive Left Range of motion of the lumbar spine Flexion 30 degrees, extension 10 degrees Straight Leg Raise test: Left/ Right positive at degree Negar test: positive right / positive left. Severe tenderness over the Sacroiliac joint on the Right / Left sides Gaenslen test: positive bilaterally Seated flexion test: positive bilaterally. Sacral spine : Severe tenderness over the Sacroiliac joint: right side / left side Range of motion: Flexion of the lumbar spine <60 degrees Range of motion: Extension of the lumbar spine <20 degrees Gaenslen's Test positive Jose Luis's Test positive Negar test: positive right side / left side Thigh Thrust Test Sacral Thrust Test Assessment/ Plan : Lumbar DDD Recommendation of medication management. Cobalt 5/325mg #120 w 1 RF. Use, side effects, adverse reactions and safe storage discussed. Opiate & Narcotic agreement signed today 09/12/22. All questions answered. I have spent greater than 30 minutes on patient care today. Dr Alvarado was available by phone for the evaluation of this patient. The time was used to review the medical records including relevant urine studies and Prescription history (MAPs), review of the available imaging, evaluation and examination of the patient, coordination of care with the medical staff and if applicable referring physicians, as well as creation of the medical record PQRS Narrative: Smoking Status Former smoker Home Medications: Ambulatory Orders Multivitamins, Thera [Multivitamin (formulary)] 1 tab PO DAILY 07/30/13 Omeprazole [PriLOSEC] 60 mg PO AC-BRKFST 07/30/13 Cetirizine HCl [Zyrtec] 10 mg PO DAILY 09/29/15 Pregabalin [Lyrica] 100 mg PO BID 09/29/15 Ascorbic Acid [Vitamin C] 500 mg PO DAILY 07/18/17 Cholecalciferol [Vitamin D3] 400 unit PO DAILY 07/18/17 Magnesium Oxide [Magox 400] 400 mg PO DAILY 07/18/17 [place]-3 Fatty Acids/Fish Oil [Fish Oil 1,000 mg Softgel] 1 cap PO DAILY 07/18/17 Aspirin 81 mg PO DAILY #0 chew 07/19/17 Isosorbide Dinitrate 5 mg PO 02/17/19 lisinopriL [Zestril] 15 mg PO DAILY 02/17/19 HYDROcodone/APAP 5-325MG [[place] 5-325] 1 tab PO Q6HR PRN 30 Days #120 tab 09/12/22 HYDROcodone/APAP 5-325MG [[place] 5-325] 1 tab PO Q6HR PRN 30 Days #120 tab 09/12/22 Controlled Substance Measures - Controlled Substance Measures Is patient prescribed a controlled substance at discharge?: Yes When asked, does pt state using other controlled substances?: No If prescribed controlled substance>3 days was MAPS reviewed?: Yes If Rx opioid, was Start Talking consent form obtained?: Yes Was information provided regarding opioid addiction?: Yes
== END ==
LOC: PNWHC3 13:00
PROVIDERS: ATTEND Specialist
DX: M51.36 Other intervertebral disc degeneration, lumbar region (principal); M47.816 Spondylosis without myelopathy or radiculopathy, lumbar region; I25.10 Atherosclerotic heart disease of native coronary artery without angina pectoris; G89.29 Other chronic pain; K21.9 Gastro-esophageal reflux disease without esophagitis; M06.9 Rheumatoid arthritis, unspecified; I67.9 Cerebrovascular disease, unspecified; D86.9 Sarcoidosis, unspecified; M79.7 Fibromyalgia; H91.90 Unspecified hearing loss, unspecified ear; Z88.0 Allergy status to penicillin; Z88.5 Allergy status to narcotic agent; Z79.82 Long term (current) use of aspirin; Z87.891 Personal history of nicotine dependence
CPT/HCPCS: 99211

== ENCOUNTER 2022-11-04 15:03 | Observation (INO) | payer MEDICARE, BC ==
[2022-11-04] MEDS ORDERED: SODIUM CHLORIDE 0.9% 1,000 ML IV STA (15:23)
[2022-11-04] MEDS ORDERED: ASPIRIN 81 MG PO STA (15:23)
[2022-11-04] MEDS ORDERED: NITROGLYCERIN OINT 1 INCH/GM PACKET TOPICAL STA (15:40)
[2022-11-04 15:41] LABS: Basophils % (A) 0 %; Eosinophils # (A) 0.1 k/uL (0-0.7); Eosinophils % (A) 2 %; HCT 38.8 % (34.0-46.0); HGB 13.4 gm/dL (11.4-16.0); Lymphocytes # (A) 1.8 k/uL (1.0-4.8); Lymphocytes % (A) 33 %; MCH 30.6 pg (25.0-35.0); MCHC 34.5 g/dL (31.0-37.0); MCV 88.8 fL (80.0-100.0); Mean Platelet Volume 9.4; Monocytes # (A) 0.4 k/uL (0-1.0); Monocytes % (A) 8 %; Neutrophils % (A) 55 %; Platelet Count 178 k/uL (150-450); RBC 4.37 m/uL (3.80-5.40); RDW 12.2 % (11.5-15.5); WBC 5.5 k/uL (3.8-10.6)
[2022-11-04 15:49] LABS: Prothrombin Time 10.5 sec (9.0-12.0)
[2022-11-04 15:58] LABS: ALT 21 U/L (4-34); AST 33 U/L (14-36); African American GFR (CKD) 81 (>60 ml/min/1.73 sqM); Albumin 4.2 g/dL (3.5-5.0); Alkaline Phosphatase 52 U/L (38-126); Anion Gap 8 mmol/L; Blood Urea Nitrogen 19 mg/dL (7-17); Calcium 9.5 mg/dL (8.4-10.2); Carbon Dioxide 28 mmol/L (22-30); Chloride 101 mmol/L (98-107); Glucose 94 mg/dL (74-99); Magnesium 1.9 mg/dL (1.6-2.3); Non-African American GFR(CKD) 71 (>60 ml/min/1.73 sqM); Potassium 4.7 mmol/L (3.5-5.1); Sodium 137 mmol/L (137-145); Total Bilirubin 0.6 mg/dL (0.2-1.3); Total Protein 7.3 g/dL (6.3-8.2)
[2022-11-04] MEDS ORDERED: HEPARIN SODIUM 1,000 UN/ML (10ML VL) IV PRN (16:18)
[2022-11-04] MEDS ORDERED: HEPARIN SODIUM 1,000 UN/ML (10ML VL) IV ONE (16:18)
--- NOTE | 2022-11-04 16:24 | XR ---
EXAMINATION TYPE: XR chest 2V DATE OF EXAM: 11/04/2022 3:49 PM COMPARISON: Chest radiographs from 07/18/2017 TECHNIQUE: XR chest 2V Frontal and lateral views of the chest. CLINICAL INDICATION:Female, 77 years old with history of Chest Pain; FINDINGS: Lungs/Pleura: There is no evidence of pleural effusion, focal consolidation, or pneumothorax. Pulmonary vascularity: Unremarkable. Heart/mediastinum: Cardiomediastinal silhouette is unremarkable. Atherosclerotic calcifications are seen in the aorta. Musculoskeletal: No acute osseous pathology. IMPRESSION: No acute cardiopulmonary disease/process.
[2022-11-04] MEDS ORDERED: HEPARIN SOD,PORK IN 0.45% NACL 25,000 UNIT in 0.45% NACL 1 250ML.BAG IV SCH (16:30)
[2022-11-04] MEDS ORDERED: ONDANSETRON 4 MG/2 ML VIAL IVP PRN (16:50)
[2022-11-04] MEDS ORDERED: NALOXONE 0.4 MG/ML 1 ML VIAL IV PRN (16:50)
--- NOTE | 2022-11-04 16:54 | ED ---
General Adult HPI - General Chief complaint: Chest Pain Stated complaint: Jaw pain; back pain Time Seen by Provider: 11/04/22 15:22 Source: patient, RN notes reviewed, old records reviewed Mode of arrival: ambulatory Limitations: no limitations - History of Present Illness Initial comments: Patient is a 77-year-old female who presents emergency Department complaining of chest pain. Patient had some typical sounding chest pain just prior to arrival. Was left-sided substernal chest pressure sensation with radiation to her jaw. States she felt slightly nauseous and may have been sweaty when the pain was onset. Patient was given 2 nitroglycerin tablets at home which resolved her pain mostly. States at this time her pain is resolved. Pain occurred within the last 30 minutes. Patient states she has a history of CAD as well as a blockage that was not intervened on. Currently denies any shortness breath, abdominal pain, nausea, vomiting, current chest pain. His no other acute complaints at this time. She has concern regarding her heart. Presents for further evaluation. - Related Data Home Medications Medication Instructions Recorded Confirmed Pregabalin [Lyrica] 100 mg PO TID 09/29/15 11/04/22 Albuterol Sulfate [Albuterol 2 puff PO RT-Q6H PRN 11/04/22 11/04/22 Sulfate Hfa] Azelastine HCl [Optivar 0.05% 1 drop BOTH EYES BID PRN 11/04/22 11/04/22 Ophth Soln] Ipratropium [place] [Ipratropium 1 spray NASAL QID 11/04/22 11/04/22 [place] 0.03%] Latanoprost [Latanoprost 0.005%] 1 drop BOTH EYES HS 11/04/22 11/04/22 Rosuvastatin Calcium 5 mg PO DAILY 11/04/22 11/04/22 Previous Rx's Medication Instructions Recorded HYDROcodone/APAP 5-325MG [[place] 1 tab PO Q6HR PRN 30 Days #120 tab 09/12/22 5-325] Allergies Allergy/AdvReac Type Severity Reaction Status Date / Time Penicillins Allergy Unknown Verified 11/04/22 16:57 narcotics AdvReac Vomiting Uncoded 11/04/22 16:57 Review of Systems ROS Statement: Those systems with pertinent positive or pertinent negative responses have been documented in the HPI. Review of Systems: CONST: Denies fever EYES: Denies blurry vision ENT: Denies nasal congestion C/V: Endorses resolved chest pain RESP: Denies shortness of breath GI: Denies abdominal pain : Denies dysuria SKIN: Denies rash. MSK: Denies joint pain. NEURO: Denies headache ROS Other: All systems not noted in ROS Statement are negative. Past Medical History Past Medical History: Coronary Artery Disease (CAD), CVA/TIA, Fibromyalgia, GERD/Reflux, Hearing Disorder / Deafness, Osteoarthritis (OA), Rheumatoid Arthritis (RA) Additional Past Medical History / Comment(s): hx -sarcoidosis, TIA, pain in back and left shoulder, has rodney braces on feet d/t fallen arches-uses a cane.wears lolis hearing aids, has lower bridge. Also history of glaucoma (had laser eye sx). She is status post greater than 3 years of Reclast bisphosphonate use.hx osteoporosis. small cataract rt eye,seasonal allergies. 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 History of Any Multi-Drug Resistant Organisms: None Reported Past Surgical History: Heart Catheterization, Joint Replacement, Orthopedic Surgery Additional Past Surgical History / Comment(s): sinus surgery. Also laser eye surgery for glaucoma and colonoscopy in approximately 2008. Past Anesthesia/Blood Transfusion Reactions: Postoperative Nausea & Vomiting (PONV) Past Psychological History: No Psychological Hx Reported Smoking Status: Never smoker Past Alcohol Use History: None Reported Past Drug Use History: None Reported - Past Family History Sister(s) Family Medical History: Cancer Additional Family Medical History / Comment(s): breast cancer. 2 other sisters had cancer, one with brain cancer and the other with colon cancer. Father Family Medical History: Cancer Mother Family Medical History: GI Bleed Brother(s) Family Medical History: Coronary Artery Disease (CAD) General Exam - General Exam Comments Initial Comments: General: Appears in no acute distress. HEAD: Normal with no signs of head trauma. EYES: PERRLA, EOMI, conjunctiva normal, no discharge. ENT: Hearing grossly intact, normal oropharynx. RESPIRATORY: Clear breath sounds bilaterally. No wheezes, rales, or rhonchi. C/V: Regular rate and rhythm. S1 and S2 auscultated, no edema, peripheral pulses 2+ and intact throughout ABD: Abd is soft, nontender, nondistended EXT: Normal range of motion, no obvious deformity SKIN: No rashes or lesions observed on exposed skin. NEURO: Alert and oriented 4 Limitations: no limitations Course Vital Signs 11/04/22 11/04/22 11/04/22 15:05 15:29 15:46 Temperature 98.4 F Pulse Rate 89 82 Pulse Rate [ Left Pulse Oximetery] Respiratory 20 20 20 Rate Blood Pressure 129/79 151/83 Blood Pressure [Left Arm] O2 Sat by Pulse 96 99 Oximetry 11/04/22 11/04/22 18:18 18:47 Temperature 98.2 F Pulse Rate 68 Pulse Rate [ 82 Left Pulse Oximetery] Respiratory 16 16 Rate Blood Pressure 138/65 Blood Pressure 163/80 [Left Arm] O2 Sat by Pulse 98 94 L Oximetry Medical Decision Making - Medical Decision Making Was pt. sent in by a medical professional or institution (Dr. PA, COAL SCREENER, urgent care, hospital, or usp...) When possible be specific @ -No Did you speak to anyone other than the patient for history (EMS, parent, family, police, friend...)? What history was obtained from this source @ -No Did you review nursing and triage notes (agree or disagree)? Why? @ -I reviewed and agree with nursing and triage notes Were old charts reviewed (outside hosp., previous admission, EMS record, old EKG, old radiological studies, urgent care reports/EKG's, usp records)? Report findings @ -Old charts reviewed Differential Diagnosis (chest pain, altered mental status, abdominal pain women, abdominal pain men, vaginal bleeding, weakness, fever, dyspnea, syncope, headache, dizziness, GI bleed, back pain, seizure, CVA, palpatations, mental health, musculoskeletal)? @ -Differential Chest Pain: Stable Angina, Unstable Angina, STEMI, NSTEMI Aortic Dissection, Pneumothorax, Musculoskeletal, Esophageal Spasm GERD, Cholecystitis, Pancreatitis, Zoster, this is not meant to be an all-inclusive list. EKG interpreted by me (3pts min.). @ -As above X-rays interpreted by me (1pt min.). @ -Chest X-ray reveals no obvious acute cardiopulmonary process. CT interpreted by me (1pt min.). @ -None done U/S interpreted by me (1pt. min.). @ -None done What testing was considered but not performed or refused? (CT, X-rays, U/S, labs)? Why? @ -None What meds were considered but not given or refused? Why? @ -None Did you discuss the management of the patient with other professionals (professionals i.e. , PA, COAL SCREENER, lab, RT, psych nurse, social service manager, chargemaster analyst, teacher, policy officer, keycase assembler)? Give summary @ -Discussed with [facility] Dr. Osborne who accepted the admission. Was smoking cessation discussed for >3mins.? @ -No Was critical care preformed (if so, how long)? @ -Yes, 36 minutes Were there social determinants of health that impacted care today? How? (Homelessness, low income, unemployed, alcoholism, drug addiction, t ransportation, low edu. Level, literacy, decrease access to med. care, shelter, rehab)? @ -No Was there de-escalation of care discussed even if they declined (Discuss DNR or withdrawal of care, Hospice)? DNR status @ -No What co-morbidities impacted this encounter? (DM, HTN, Smoking, COPD, CAD, Cancer, CVA, ARF, Chemo, Hep., AIDS, mental health diagnosis, sleep apnea, morbid obesity)? @ -CAD Was patient admitted / discharged? Hospital course, mention meds given and route, prescriptions, significant lab abnormalities, going to OR and other pertinent info. @ -Based on the patient's presentation and physical exam, she presents concerned for chest pain. Has a history of CAD. Seems to have been unstable anginal type pain at home. Occurred at rest and required nitroglycerin tablets resolution. Patient currently states it is improving and almost resolved. We' ll obtain cardiopulmonary labs. We will administer nitroglycerin paste. She will receive 324 mg of aspirin. Vital signs within acceptable limits. Patient was in agreement this plan. EKG showed no signs of acute ischemia. Initial labs remarkable for undetectable troponin troponin. Chest x-ray unremarkable. On reevaluation, I discussed that due to the patient having such typical sounding chest pain resolved with nitro and it occurred at rest I'm concerned for unstable angina at this time. She'll be started on heparin drip we will admit for troponin monitoring. Echo ordered. Cardiology consulted. She was in agreement this plan. I spoke with the admitting physician, Dr. Osborne who accepted the admission. Undiagnosed new problem with uncertain prognosis? @ -No Drug Therapy requiring intensive monitoring for toxicity (Heparin, Nitro, Insulin, Cardizem)? @ -Heparin Were any procedures done? @ -No Diagnosis/symptom? @ -Chest pain, unstable angina Acute, or Chronic, or Acute on Chronic? @ -Acute Uncomplicated (without systemic symptoms) or Complicated (systemic symptoms)? @ -Complicated Side effects of treatment? @ -No Exacerbation, Progression, or Severe Exacerbation? @ -No Poses a threat to life or bodily function? How? (Chest pain, [place], [place], pneumonia, PE, COPD, DKA, ARF, appy, cholecystitis, CVA, Diverticulitis, Homicidal, Suicidal, threat to staff... and all critical care pts) @ -Potentially, yes - Lab Data Result diagrams: 11/04/22 15:23 11/04/22 15:23 Lab Results 11/04/22 11/04/22 11/04/22 Range/Units 15:23 15:23 15:23 WBC 5.5 (3.8-10.6) k/uL RBC 4.37 (3.80-5.40) m/uL Hgb 13.4 (11.4-16.0) gm/dL Hct 38.8 (34.0-46.0) % MCV 88.8 (80.0-100.0) fL MCH 30.6 (25.0-35.0) pg MCHC 34.5 (31.0-37.0) g/dL RDW 12.2 (11.5-15.5) % Plt Count 178 (150-450) k/uL MPV 9.4 Neutrophils % 55 % Lymphocytes % 33 % Monocytes % 8 % Eosinophils % 2 % Basophils % 0 % Neutrophils # 3.0 (1.3-7.7) k/uL Lymphocytes # 1.8 (1.0-4.8) k/uL Monocytes # 0.4 (0-1.0) k/uL Eosinophils # 0.1 (0-0.7) k/uL Basophils # 0.0 (0-0.2) k/uL PT 10.5 (9.0-12.0) sec INR 1.0 (<1.2) APTT 24.0 (22.0-30.0) sec Sodium 137 (137-145) mmol/L Potassium 4.7 (3.5-5.1) mmol/L Chloride 101 (98-107) mmol/L Carbon Dioxide 28 (22-30) mmol/L Anion Gap 8 mmol/L BUN 19 H (7-17) mg/dL Creatinine 0.80 (0.52-1.04) mg/dL Est GFR (CKD-EPI)AfAm 81 (>60 ml/min/1.73 sqM) Est GFR (CKD-EPI)NonAf 71 (>60 ml/min/1.73 sqM) Glucose 94 (74-99) mg/dL Calcium 9.5 (8.4-10.2) mg/dL Magnesium 1.9 (1.6-2.3) mg/dL Total Bilirubin 0.6 (0.2-1.3) mg/dL AST 33 (14-36) U/L ALT 21 (4-34) U/L Alkaline Phosphatase 52 (38-126) U/L Troponin I (0.000-0.034) ng/mL Total Protein 7.3 (6.3-8.2) g/dL Albumin 4.2 (3.5-5.0) g/dL 11/04/22 Range/Units 15:23 WBC (3.8-10.6) k/uL RBC (3.80-5.40) m/uL Hgb (11.4-16.0) gm/dL Hct (34.0-46.0) % MCV (80.0-100.0) fL MCH (25.0-35.0) pg MCHC (31.0-37.0) g/dL RDW (11.5-15.5) % Plt Count (150-450) k/uL MPV Neutrophils % % Lymphocytes % % Monocytes % % Eosinophils % % Basophils % % Neutrophils # (1.3-7.7) k/uL Lymphocytes # (1.0-4.8) k/uL Monocytes # (0-1.0) k/uL Eosinophils # (0-0.7) k/uL Basophils # (0-0.2) k/uL PT (9.0-12.0) sec INR (<1.2) APTT (22.0-30.0) sec Sodium (137-145) mmol/L Potassium (3.5-5.1) mmol/L Chloride (98-107) mmol/L Carbon Dioxide (22-30) mmol/L Anion Gap mmol/L BUN (7-17) mg/dL Creatinine (0.52-1.04) mg/dL Est GFR (CKD-EPI)AfAm (>60 ml/min/1.73 sqM) Est GFR (CKD-EPI)NonAf (>60 ml/min/1.73 sqM) Glucose (74-99) mg/dL Calcium (8.4-10.2) mg/dL Magnesium (1.6-2.3) mg/dL Total Bilirubin (0.2-1.3) mg/dL AST (14-36) U/L ALT (4-34) U/L Alkaline Phosphatase (38-126) U/L Troponin I <0.012 (0.000-0.034) ng/mL Total Protein (6.3-8.2) g/dL Albumin (3.5-5.0) g/dL - EKG Data -: EKG Interpreted by Me EKG Comments: 12-lead Electrocardiogram Interpretation Note EKG was reviewed and interpreted by myself. 12-lead ECG performed at 1519 is interpreted by me as revealing normal sinus rhythm at a rate of 82 beats per minute. [place] is normal. MT interval is 206 ms, QRS duration 71 ms, QTc is 382 ms.. There were no ST or T wave abnormalities to suggest myocardial ischemia or injury. R wave progression across the precordium was satisfactory. By my interpretation this EKG is non-diagnostic for acute ischemia. Disposition Clinical Impression: Chest pain, Unstable angina Disposition: ADMITTED IP TO THIS HOSP Condition: Stable Time of Disposition: 16:35
[2022-11-04] MEDS ORDERED: ALBUTEROL NEBULIZED 2.5 MG/3 ML INHALATION PRN (19:00)
[2022-11-04] MEDS ORDERED: KETOTIFEN 0.025% OPHTH DROPS 5 ML BTL BOTH EYES PRN (19:00)
--- NOTE | 2022-11-04 19:12 | P.HPIM ---
History of Present Illness H&P Date: 11/04/22 Chief Complaint: Chest pain 77-year-old female patient with history of coronary artery disease, CVA/TIA, fibromyalgia, presents to ED with complaint of chest pain; patient reports pain starts in the middle of the chest and radiates to back and jaw; patient took sublingual nitroglycerin which did help with the pain; reports pain associated with nausea but no vomiting or diaphoresis Laboratory data reveals a WBC of 5.5, hemoglobin of 13.4, platelet count of 178, sodium 137, potassium 4.7, BUN/creatinine of 19/0.8 and blood glucose of 94, troponin is less than 0.012 -- Patient had another episode of chest pain while in ED was relieved with sublingual nitroglycerin; given history of coronary artery disease patient is started on IV heparin for unstable angina Review of Systems REVIEW OF SYSTEMS: CONSTITUTIONAL: No fever, no malaise, no fatigue. HEENT: No recent visual problems or hearing problems. Denied any sore throat. CARDIOVASCULAR: No chest pain, orthopnea, PND, no palpitations, no syncope. PULMONARY: No shortness of breath, no cough, no hemoptysis. GASTROINTESTINAL: No diarrhea, no nausea, no vomiting, no abdominal pain. NEUROLOGICAL: No headaches, no weakness, no numbness. HEMATOLOGICAL: Denies any bleeding or petechiae. GENITOURINARY: Denies any burning micturition, frequency, or urgency. MUSCULOSKELETAL/RHEUMATOLOGICAL: Denies any joint pain, swelling, or any muscle pain. ENDOCRINE: Denies any polyuria or polydipsia. The rest of the 14-point review of systems is negative. Past Medical History Past Medical History: Coronary Artery Disease (CAD), CVA/TIA, Fibromyalgia, GERD/Reflux, Hearing Disorder / Deafness, Osteoarthritis (OA), Rheumatoid Arthritis (RA) Additional Past Medical History / Comment(s): hx -sarcoidosis, TIA, pain in back and left shoulder, has rodney braces on feet d/t fallen arches-uses a cane.wears lolis hearing aids, has lower bridge. Also history of glaucoma (had laser eye sx). She is status post greater than 3 years of Reclast bisphosphonate use.hx osteoporosis. small cataract rt eye,seasonal allergies. 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 History of Any Multi-Drug Resistant Organisms: None Reported Past Surgical History: Heart Catheterization, Joint Replacement, Orthopedic Surgery Additional Past Surgical History / Comment(s): sinus surgery. Also laser eye surgery for glaucoma and colonoscopy in approximately 2008. Past Anesthesia/Blood Transfusion Reactions: Postoperative Nausea & Vomiting (PONV) Past Psychological History: No Psychological Hx Reported Smoking Status: Never smoker Past Alcohol Use History: None Reported Additional Past Alcohol Use History / Comment(s): smoked from age 14 to 20, 3-4 cig per day Past Drug Use History: None Reported - Past Family History Sister(s) Family Medical History: Cancer Additional Family Medical History / Comment(s): breast cancer. 2 other sisters had cancer, one with brain cancer and the other with colon cancer. Father Family Medical History: Cancer Mother Family Medical History: GI Bleed Brother(s) Family Medical History: Coronary Artery Disease (CAD) Medications and Allergies Home Medications Medication Instructions Recorded Confirmed Type Pregabalin [Lyrica] 100 mg PO TID 09/29/15 11/04/22 History HYDROcodone/APAP 5-325MG [[place] 1 tab PO Q6HR PRN 30 Days #120 tab 09/12/22 11/04/22 Rx 5-325] Albuterol Sulfate [Albuterol 2 puff PO RT-Q6H PRN 11/04/22 11/04/22 History Sulfate Hfa] Azelastine HCl [Optivar 0.05% 1 drop BOTH EYES BID PRN 11/04/22 11/04/22 History Ophth Soln] Ipratropium [place] [Ipratropium 1 spray NASAL QID 11/04/22 11/04/22 History [place] 0.03%] Latanoprost [Latanoprost 0.005%] 1 drop BOTH EYES HS 11/04/22 11/04/22 History Rosuvastatin Calcium 5 mg PO DAILY 11/04/22 11/04/22 History Allergies Allergy/AdvReac Type Severity Reaction Status Date / Time Penicillins Allergy Unknown Verified 11/04/22 16:57 narcotics AdvReac Vomiting Uncoded 11/04/22 16:57 Physical Exam Vitals: Vital Signs Temp Pulse Pulse Resp BP BP Pulse Ox 11/04/22 18:47 98.2 F 82 16 163/80 94 L 11/04/22 18:18 68 16 138/65 98 11/04/22 15:46 20 11/04/22 15:29 82 20 151/83 99 11/04/22 15:05 98.4 F 89 20 129/79 96 Intake and Output 11/04/22 11/04/22 11/04/22 06:59 14:59 22:59 Intake Total 240 Balance 240 Intake: Oral 240 Other: Weight 77.111 kg - Constitutional General appearance: Present: average body habitus, cooperative, no acute distress - EENT Eyes: Present: anicteric sclerae, EOMI, PERRLA, normal appearance ENT: Present: hearing grossly normal, normal oropharynx Ears: bilateral: normal - Neck Neck: Present: normal ROM. Absent: lymphadenopathy, rigidity, thyromegaly Carotids: negative: bruit present Thyroid: bilateral: normal size, negative: enlarged, nodule - Respiratory Respiratory: bilateral: CTA, negative: rales, rhonchi, wheezing - Cardiovascular Rhythm: regular Heart sounds: normal: S1, S2 Abnormal Heart Sounds: Absent: systolic murmur, diastolic murmur - Gastrointestinal General gastrointestinal: Present: normal bowel sounds, soft. Absent: distended, organomegaly, tenderness - Genitourinary Genitourinary Comment(s): deferred - Integumentary Integumentary: Present: normal turgor. Absent: jaundiced, rash, ulcer - Neurologic Neurologic: Present: CNII-XII intact. Absent: focal deficits - Musculoskeletal Musculoskeletal: Present: gait normal, strength equal bilaterally - Psychiatric Psychiatric: Present: A&O x's 3, appropriate affect, intact judgment & insight Results CBC & Chem 7: 11/04/22 15:23 11/04/22 15:23 Labs: Abnormal Lab Results - Last 24 Hours (Table) 11/04/22 Range/Units 15:23 BUN 19 H (7-17) mg/dL Thrombosis Risk Factor Assmnt - Choose All That Apply Each Risk Factor Represents 3 Points: Age 75 years or older Thrombosis Risk Factor Assessment Total Risk Factor Score: 3 Thrombosis Risk Factor Assessment Level: Moderate Risk Assessment and Plan Assessment: 1. Chest pain/unstable angina - Patient is admitted to telemetry; monitor EKG and trend troponin - Patient has been placed on IV heparin infusion; recommend 2-D echo - Consult cardiology 2. Mild renal injury; slowly IV fluid hydration with normal saline; 3. Hypertension; currently not on any antihypertensive therapy 4. Coronary artery disease; dyslipidemia on aspirin and Imdur 5. Fibromyalgia; lytic 100 mg by mouth 3 times a day along with [place] 5 mg ev irena 6 hours when necessary 6. Hyperlipidemia; Lipitor 10 mg by mouth daily at bedtime DVT prophylaxis; SCDs/IV heparin CODE STATUS; full code
[2022-11-04] MEDS: IPRATROPIUM BROMIDE 0.06% NASAL SPRAY (15 ML) INTRANASAL SCH (20:00)
[2022-11-04] MEDS: HYDROcodone/APAP 5-325MG 1 EACH TAB PO PRN (20:14)
[2022-11-04] MEDS: PREGABALIN 100 MG CAP PO SCH (20:16)
[2022-11-04] MEDS ORDERED: LATANOPROST 0.005% OPHTH DROPS 2.5 ML BTL BOTH EYES SCH (21:00)
[2022-11-05] MEDS: HYDROcodone/APAP 5-325MG 1 EACH TAB PO PRN ×2 (03:30→12:40)
[2022-11-05 06:52] LABS: INR 1.1 (<1.2); Partial Thromboplastin Time 88.7 sec (22.0-30.0); Prothrombin Time 11.1 sec (9.0-12.0)
[2022-11-05 07:11] VITALS: BP 129/75; PULSE 67; RESP 18; TEMP 97.6
[2022-11-05 09:00] LABS: Basophils # (A) 0.04 X 10*3/uL (0.00-0.10); Basophils % (A) 0.8 %; Eosinophils # (A) 0.16 X 10*3/uL (0.04-0.35); Eosinophils % (A) 3.1 %; HCT 37.6 % (37.2-46.3); HGB 12.3 d/dL (12.0-15.0); Immature Grans, Automated 0 %; Lymphocytes # (A) 1.58 X 10*3/uL (0.90-5.00); Lymphocytes % (A) 30.9 %; MCHC 32.7 d/dL (32.0-37.0); MCV 91.7 FL (80.0-97.0); Mean Platelet Volume 12.4 FL (9.5-12.2); Monocytes # (A) 0.56 X 10*3/uL (0.20-1.00); NRBC Per 100 WBC 0 X 10*3/uL (0.00-0.01); Neutrophils # (A) 2.77 X 10*3/uL (1.80-7.70); Neutrophils % (A) 54.2 %; Platelet Count 162 X 10*3/uL (140-440); RDW 12.1 % (11.5-14.5); WBC 5.11 X 10*3/uL (4.50-10.00)
[2022-11-05] MEDS ORDERED: ATORVASTATIN 10 MG TAB PO SCH (09:00)
[2022-11-05] MEDS ORDERED: ASPIRIN 81 MG PO SCH (09:00)
[2022-11-05] MEDS: PREGABALIN 100 MG CAP PO SCH (09:01)
--- NOTE | 2022-11-05 09:09 | P.CRDCN ---
History of Present Illness Consult date: 11/05/22 Requesting physician: Juanjo Osborne Reason for Consult (text): chest pain Chief complaint: jaw and chest pain History of present illness: This is a pleasant 77-year-old female patient who follows with Dr. Love in the office, last seen about a year ago according to the patient. She has a history of hyperlipidemia, mild CAD with a heart catheterization in 2016 showing a 30% lesion in the proximal LAD, sarcoidosis, rheumatoid arthritis and TIA several years ago. She presented to the emergency department with complaints of chest discomfort. She was sitting riding on a list developed pain in her jaw that radiated down into her chest. She took 2 of her 's nitroglycerin sublingual without relief and then proceeded to come to the hospital. Pain had subsided by the time she arrived. Lasted in total about 25 minutes. She does not recall any associated symptoms, aggravating factors or relieving factors. Chest x-ray showed no acute cardiopulmonary disease/process. EKG showed sinus mechanism with no evidence of acute ischemia. Cardiac enzymes have been negative 3. She was initiated on IV heparin. She's been chest pain-free since admission. She denies any complaints of shortness of breath, orthopnea or PND. She has no dizziness, lightheadedness or sustained palpitations. She complains of generalized joint pain secondary to rheumatoid and osteoarthritis which is s omewhat limiting. She follows with Dr. Johnson for her sarcoidosis which has been stable according to the patient. She is quite anxious to go home. Past Medical History Past Medical History: Coronary Artery Disease (CAD), CVA/TIA, Fibromyalgia, GERD/Reflux, Hearing Disorder / Deafness, Osteoarthritis (OA), Rheumatoid Arthritis (RA) Additional Past Medical History / Comment(s): hx -sarcoidosis, TIA, pain in back and left shoulder, has rodney braces on feet d/t fallen arches-uses a cane.wears lolis hearing aids, has lower bridge. Also history of glaucoma (had laser eye sx). She is status post greater than 3 years of Reclast bisphosphonate use.hx osteoporosis. small cataract rt eye,seasonal allergies. 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 History of Any Multi-Drug Resistant Organisms: None Reported Past Surgical History: Heart Catheterization, Joint Replacement, Orthopedic Surgery Additional Past Surgical History / Comment(s): sinus surgery. Also laser eye surgery for glaucoma and colonoscopy in approximately 2008. Past Anesthesia/Blood Transfusion Reactions: Postoperative Nausea & Vomiting (PONV) Past Psychological History: No Psychological Hx Reported Smoking Status: Never smoker Past Alcohol Use History: None Reported Past Drug Use History: None Reported - Past Family History Sister(s) Family Medical History: Cancer Additional Family Medical History / Comment(s): breast cancer. 2 other sisters had cancer, one with brain cancer and the other with colon cancer. Father Family Medical History: Cancer Mother Family Medical History: GI Bleed Brother(s) Family Medical History: Coronary Artery Disease (CAD) Medications and Allergies Home Medications Medication Instructions Recorded Confirmed Type Pregabalin [Lyrica] 100 mg PO TID 09/29/15 11/04/22 History HYDROcodone/APAP 5-325MG [[place] 1 tab PO Q6HR PRN 30 Days #120 tab 09/12/22 11/04/22 Rx 5-325] Albuterol Sulfate [Albuterol 2 puff PO RT-Q6H PRN 11/04/22 11/04/22 History Sulfate Hfa] Azelastine HCl [Optivar 0.05% 1 drop BOTH EYES BID PRN 11/04/22 11/04/22 History Ophth Soln] Ipratropium [place] [Ipratropium 1 spray NASAL QID 11/04/22 11/04/22 History [place] 0.03%] Latanoprost [Latanoprost 0.005%] 1 drop BOTH EYES HS 11/04/22 11/04/22 History Rosuvastatin Calcium 5 mg PO DAILY 11/04/22 11/04/22 History Allergies Allergy/AdvReac Type Severity Reaction Status Date / Time Penicillins Allergy Unknown Verified 11/04/22 16:57 narcotics AdvReac Vomiting Uncoded 11/04/22 16:57 Physical Exam Vitals: Vital Signs Temp Pulse Pulse Resp BP BP Pulse Ox 11/05/22 07:00 97.6 F 67 18 129/75 95 11/05/22 01:23 97.7 F 69 16 132/73 96 11/04/22 20:00 82 16 11/04/22 18:47 98.2 F 82 16 163/80 94 L 11/04/22 18:18 68 16 138/65 98 11/04/22 15:46 20 11/04/22 15:29 82 20 151/83 99 11/04/22 15:05 98.4 F 89 20 129/79 96 Intake and Output 11/04/22 11/05/22 11/05/22 22:59 06:59 14:59 Intake Total 240 76.8 64.771 Balance 240 76.8 64.771 Intake: Intake, IV Titration 76.8 64.771 Amount Heparin Sod,Pork in 0.45% 76.8 64.771 NaCl 25,000 unit In 0.45 % NaCl 1 250ml.bag @ 12 UNITS/KG/HR 9.253 mls/hr IV .Q24H [facility] Rx#: [id number] Oral 240 Other: # Voids 1 Weight 77.111 kg PHYSICAL EXAMINATION: This is a 77-year-old female in no apparent distress at the time of my examination. HEENT: Head is atraumatic, normocephalic. Pupils are equal, round. Sclerae anicteric. Conjunctivae are clear. Mucous membranes of the mouth are moist. Neck is supple. There is no elevated jugular venous pressure. No carotid bruit is heard. CHEST EXAMINATION: Clear to auscultation bilaterally. No wheezes rales or rhonchi. Respirations even and nonlabored. HEART EXAMINATION: Heart regular, positive S1 and S2. No S3. No S4. No c licks, rubs or murmurs. ABDOMEN: Soft, nontender. Bowel sounds are heard. No organomegaly noted. EXTREMITIES: 2+ peripheral pulses with no evidence of peripheral edema and no calf tenderness noted. NEUROLOGIC EXAMINATION: Patient is awake, alert and oriented x3. Results 11/05/22 05:29 11/05/22 05:29 Cardiac Enzymes 11/04/22 11/04/22 11/04/22 Range/Units 15:23 15:23 18:49 AST 33 (14-36) U/L Troponin I <0.012 <0.012 (0.000-0.034) ng/mL 11/04/22 Range/Units 22:50 AST (14-36) U/L Troponin I <0.012 (0.000-0.034) ng/mL Coagulation 11/04/22 11/04/22 11/05/22 Range/Units 15:23 22:50 05:29 PT 10.5 11.1 (9.0-12.0) sec APTT 24.0 75.1 H 88.7 H (22.0-30.0) sec CBC 11/04/22 11/05/22 Range/Units 15:23 05:29 WBC 5.5 5.11 (3.8-10.6) k/uL RBC 4.37 4.10 (3.80-5.40) m/uL Hgb 13.4 12.3 (11.4-16.0) gm/dL Hct 38.8 37.6 (34.0-46.0) % Plt Count 178 162 (150-450) k/uL Comprehensive Metabolic Panel 11/04/22 Range/Units 15: Sodium 137 (137-145) mmol/L Potassium 4.7 (3.5-5.1) mmol/L Chloride 101 (98-107) mmol/L Carbon Dioxide 28 (22-30) mmol/L BUN 19 H (7-17) mg/dL Creatinine 0.80 (0.52-1.04) mg/dL Glucose 94 (74-99) mg/dL Calcium 9.5 (8.4-10.2) mg/dL AST 33 (14-36) U/L ALT 21 (4-34) U/L Alkaline Phosphatase 52 (38-126) U/L Total Protein 7.3 (6.3-8.2) g/dL Albumin 4.2 (3.5-5.0) g/dL Current Medications Generic Name Dose Route Start Last Admin Trade Name Freq PRN Reason Stop Dose Admin Hydrocodone Bitart/Acetaminophen 1 each 11/04/22 19:00 11/05/22 03:30 Hydrocodone/Apap 5-325mg 1 Each Tab PO 1 each Q6HR PRN Administration Pain Albuterol Sulfate 2.5 mg 11/04/22 19:00 Albuterol Nebulized 2.5 Mg/3 Ml INHALATION RT-Q6H PRN Shortness Of Breath Aspirin 81 mg 11/05/22 09:00 11/05/22 09:01 Aspirin 81 Mg PO 81 mg DAILY GIOVANNI Administration Atorvastatin Calcium 10 mg 11/05/22 09:00 11/05/22 09:01 Atorvastatin 10 Mg Tab PO 10 mg DAILY GIOVANNI Administration Heparin Sodium (Porcine) 0 unit 11/04/22 16:18 Heparin Sodium 1,000 Un/Ml (10ml Vl) IV PER PROTOCOL PRN Low PTT Protocol Heparin Sodium/Sodium Chloride 250 mls @ 9.253 mls/hr 11/04/22 16:30 11/05/22 07:54 25,000 unit/ Sodium Chloride IV 10 units/kg/hr .Q24H GIOVANNI 7.711 mls/hr Titration Protocol 12 UNITS/KG/HR Ipratropium [place] 1 spray 11/04/22 22:00 11/04/22 20:00 Ipratropium [place] 0.06% Nasal [place] (15 Ml) INTRANASAL 1 spray QID GIOVANNI Administration Ketotifen Fumarate 1 drops 11/04/22 19:00 Ketotifen 0.025% Ophth Drops 5 Ml Btl BOTH EYES BID PRN Allergy Symptoms Latanoprost 1 drops 11/04/22 21:00 11/04/22 20:00 Latanoprost 0.005% Ophth Drops 2.5 Ml Btl BOTH EYES 1 drops HS GIOVANNI Administration Naloxone HCl 0.2 mg 11/04/22 16:50 Naloxone 0.4 Mg/Ml 1 Ml Vial IV Q2M PRN Opioid Reversal Ondansetron HCl 4 mg 11/04/22 16:50 Ondansetron 4 Mg/2 Ml Vial IVP Q8HR PRN Nausea And Vomiting Pregabalin 100 mg 11/04/22 22:00 11/05/22 09:01 Pregabalin 100 Mg Cap PO 100 mg TID GIOVANNI Administration Intake and Output 11/04/22 11/05/22 11/05/22 22:59 06:59 14:59 Intake Total 240 76.8 64.771 Balance 240 76.8 64.771 Intake: Intake, IV Titration 76.8 64.771 Amount Heparin Sod,Pork in 0.45% 76.8 64.771 NaCl 25,000 unit In 0.45 % NaCl 1 250ml.bag @ 12 UNITS/KG/HR 9.253 mls/hr IV .Q24H GIOVANNI Rx#: [id number] Oral 240 Other: # Voids 1 Weight 77.111 kg 11/05/22 05:29 11/04/22 15:23 Assessment and Plan Assessment: #1 symptoms of jaw and chest pain, acute coronary event has been ruled out, EKG shows no evidence of acute ischemia, troponins negative 3 #2 history of mild CAD #3 hyperlipidemia #4 sarcoidosis #5 history of TIA Plan: From cardiology's perspective we will add low-dose aspirin. Discontinue IV heparin. 2 coronary event has been ruled out. Patient to be discharged home and follow-up in the next one to [address] Love for outpatient stress test and echocardiogram. COMMERCIAL TECHNICIAN note has been reviewed, I agree with a documented findings and plan of care. Patient was seen and examined.
[2022-11-05] MEDS ORDERED: PANTOPRAZOLE 40 MG TABLET PO SCH (09:15)
[2022-11-05 10:03] LABS: BUN/Creat Ratio 19.38 Ratio (12.00-20.00); Blood Urea Nitrogen 15.5 mg/dL (9.0-27.0); Calcium 8.9 mg/dL (8.7-10.3); Carbon Dioxide 24.3 mmol/L (21.6-31.8); Chloride 108 mmol/L (96-109); Glucose 78 mg/dL (70-110); Potassium 4.3 mmol/L (3.5-5.5); Sodium 144 mmol/L (135-145)
[2022-11-05] MEDS: IPRATROPIUM BROMIDE 0.06% NASAL SPRAY (15 ML) INTRANASAL SCH (10:05)
--- NOTE | 2022-11-08 13:23 | P.DS ---
Providers Date of admission: 11/04/22 16:52 Expected date of discharge: 11/05/22 Attending physician: Juanjo Osborne MD Consults: 11/04/22 16:50 Consult Physician Routine Consulting Provider: [facility] Consult Reason/Comments: chest pain Do you want consulting provider notified?: Yes Primary care physician: Dayo Lewis [facility] Course: Final diagnosis Chest pain, ruled out ACS, unstable angina Mild acute kidney injury, improved Hypertension history Coronary artery disease history Hyperlipidemia Fibromyalgia history GI prophylaxis DVT prophylaxis Full code Discharge disposition Patient is being discharged in a stable condition with guarded prognosis to home. Patient will follow-up with Dr. Lewis in the outpatient setting upon discharge. Patient is to follow-up with cardiology outpatient as scheduled. Total time taken is greater than 35 minutes. Hospital course This is a 77-year-old female who was recently admitted with chest pain that radiated to the back and jaw that was relieved with nitro sublingual and was being closely monitored. Cardiology evaluated the patient and has cleared the patient for outpatient follow-up. Patient to continue on a baby aspirin daily and other medications and follow-up outpatient in the next 1-2 weeks. Patient was anxious to go home and wanted to go home. Patient denied any further chest pain or palpitations. Please refer to cardiology no for further HPI. Currently no reports of chest pain, shortness of breath, or palpitations. Patient is afebrile. No reports of nausea or vomiting and patient is tolerating diet. Patient will be discharged home today. Physical exam: Gen: This is a 77-year-old female who is awake, alert and oriented 3, well- developed, well-nourished, obese HEENT: Head is atraumatic, normocephalic. Pupils equal, round. Sclerae is anicteric. NECK: Supple. No JVD. No lymphadenopathy. No thyromegaly. LUNGS: Clear to auscultation. No wheezes or rhonchi. No intercostal retractions. HEART: Regular rate and rhythm. No murmur. ABDOMEN: Soft. Bowel sounds are present. No masses. No tenderness. EXTREMITIES: No pedal edema. No calf tenderness. NEUROLOGICAL: Patient is awake, alert and oriented x3. Cranial nerves 2 through 12 are grossly intact. Please refer to medication reconciliation sheet for a list of medications. The impression and plan of care has been dictated by Jazmyne Henrry, Nurse Practitioner as directed. Dr. Krysta MD I have performed a history and examination and MDM of this patient, discussed the same with the dictator, and agree with the dictator's assessment and plan as written ,documented as a scribe. Based on total visit time, I have performed more than 50% of the visit. Patient Condition at Discharge: Stable Plan - Discharge Summary Discharge Rx Participant: No New Discharge Prescriptions: New Aspirin 81 mg PO DAILY #30 tab Continue Pregabalin [Lyrica] 100 mg PO TID Albuterol Sulfate [Albuterol Sulfate Hfa] 2 puff PO RT-Q6H PRN PRN Reason: Shortness Of Breath Rosuvastatin Calcium 5 mg PO DAILY Latanoprost [Latanoprost 0.005%] 1 drop BOTH EYES HS Ipratropium [place] [Ipratropium [place] 0.03%] 1 spray NASAL QID Azelastine HCl [Optivar 0.05% Ophth Soln] 1 drop BOTH EYES BID PRN PRN Reason: Allergy Symptoms No Action HYDROcodone/APAP 5-325MG [[place] 5-325] 1 tab PO Q6HR PRN 30 Days #120 tab PRN Reason: Pain HYDROcodone/APAP 5-325MG [[place] 5-325] 1 tab PO Q6HR PRN 30 Days #120 tab PRN Reason: Pain Discharge Medication List Pregabalin [Lyrica] 100 mg PO TID 09/29/15 [History] Albuterol Sulfate [Albuterol Sulfate Hfa] 2 puff PO RT-Q6H PRN 11/04/22 [History] Azelastine HCl [Optivar 0.05% Ophth Soln] 1 drop BOTH EYES BID PRN 11/04/22 [History] Ipratropium [place] [Ipratropium [place] 0.03%] 1 spray NASAL QID 11/04/22 [History] Latanoprost [Latanoprost 0.005%] 1 drop BOTH EYES HS 11/04/22 [History] Rosuvastatin Calcium 5 mg PO DAILY 11/04/22 [History] Aspirin 81 mg PO DAILY #30 tab 11/05/22 [Rx] HYDROcodone/APAP 5-325MG [[place] 5-325] 1 tab PO Q6HR PRN 30 Days #120 tab 11/07/22 [Rx] HYDROcodone/APAP 5-325MG [[place] 5-325] 1 tab PO Q6HR PRN 30 Days #120 tab 11/07/22 [Rx] Follow up Appointment(s)/Referral(s): Jim Love MD [STAFF PHYSICIAN] - 1 Week (Please call [facility] to schedule echocardiogram, stress test, and follow up with Dr. Love.) Dayo Lewis MD [Primary Care Provider] - 1-2 days Patient Instructions/Handouts: Chest Pain (DC) Activity/Diet/Wound Care/Special Instructions: activity limited until follow up follow up with cardio in 1 week continue taking meds as prescribed Discharge Disposition: HOME SELF-CARE
== END 2022-11-05 14:20 | disposition home or self-care (01) ==
LOC: EC 15:03 → 6NMEDSUR 16:52
PROVIDERS: ADMIT Internal Medicine; ATTEND Internal Medicine
DX: R07.89 Other chest pain (principal); N17.9 Acute kidney failure, unspecified; I10 Essential (primary) hypertension; I25.10 Atherosclerotic heart disease of native coronary artery without angina pectoris; E78.5 Hyperlipidemia, unspecified; M79.7 Fibromyalgia; R11.0 Nausea; R68.84 Jaw pain; K21.9 Gastro-esophageal reflux disease without esophagitis; H91.90 Unspecified hearing loss, unspecified ear; M19.90 Unspecified osteoarthritis, unspecified site; M06.9 Rheumatoid arthritis, unspecified; D86.9 Sarcoidosis, unspecified; M21.42 Flat foot [pes planus] (acquired), left foot; M21.41 Flat foot [pes planus] (acquired), right foot; Z97.4 Presence of external hearing-aid; Z86.73 Personal history of transient ischemic attack (TIA), and cerebral infarction without residual deficits; Z87.891 Personal history of nicotine dependence; Z79.899 Other long term (current) drug therapy; Z88.5 Allergy status to narcotic agent; Z88.0 Allergy status to penicillin; Z80.3 Family history of malignant neoplasm of breast; Z82.49 Family history of ischemic heart disease and other diseases of the circulatory system; Z80.0 Family history of malignant neoplasm of digestive organs; Z80.8 Family history of malignant neoplasm of other organs or systems; Z83.79 Family history of other diseases of the digestive system
CPT/HCPCS: 96366 ×3; 96376; 96365; 99291; 36415; 93005; 80053; 80048; 83735; 84484; 85025 ×2; 85610 ×2; 85730 ×2; 71046; G0378 ×2; J1644 ×2

== ENCOUNTER → 2022-11-07 | Outpatient (CLI) | payer MEDICARE, BC ==
--- NOTE | 2022-11-07 14:20 | P.PAINPG ---
PQRS Measure Charge Sheet Comment: HISTORY OF PRESENT ILLNESS: 77 yr old female w daughter at side presents today w severe and chronic LBP x 30 yrs secondary to DDD, spondylosis and facet arthropathy without myelopathy for evaluation. Pt states pain level is provoked at 5/10 in intensity, constant, localized in the lower lumbar spine, achy in character w shooting pain towards the BLEs. Pain is provoked by over activity. Pain is alleviated by use of a cane for ambulatory assistance, medications ([place]), PT from 10 yrs ago, massage therapy from 10 yrs ago, repositioning and rest. Interventional procedures include UNKNOWN Medications include [place] 5/325mg #120, Lyrica, Tyl, Ibu, AsperCreme, Voltaren gel REVIEW OF ORGAN SYSTEMS: CONSTITUTIONAL: No fevers or chills. No recent weight loss. NEUROLOGICAL: + numbness and tingling along the distal extremities. No seizure disorders or headaches. MUSCULOSKELETAL: + pain PSYCHIATRIC: Denies current depression or suicidal thoughts. Physical Examinations : Constitutional : Cooperative , not in acute distress . Neurologic : Cranial nerve II to XII intact. No focal neurological deficits. Psychiatric : alert & oriented x 3. Matching mood & appropriate affect. Judgment & insight intact. Musculoskeletal : Cervical Spine Motor strength in the deltoid and biceps: Normal right side. Normal Left side Motor strength biceps and the wrist extensors: Normal right side . Normal left side Motor strength in the triceps muscle: Normal right side. Normal left side Deep tendon reflexes: Normal at the biceps. Normal at Brachioradialis. Normal at triceps Vertebral body tenderness to deep palpation over Cervical facet loading test: positive bilaterally Spurling test: positive bilaterally Neck distraction test: positive bilaterally Navya sign: positive bilaterally Lumbar spine Motor strength lower extremities ,thigh and legs 5/5 Right side , 5/5 Left side Deep tendon reflexes : Normal Knee Jerk. Normal Ankle Jerk Vertebral body tenderness over Castellanos Test positive Lumbar facet Loading Test: positive Right / positive Left Range of motion of the lumbar spine Flexion 30 degrees, extension 10 degrees Straight Leg Raise test: Left/ Right positive at degree Negar test: positive right / positive left. Severe tenderness over the Sacroiliac joint on the Right / Left sides Gaenslen test: positive bilaterally Seated flexion test: positive bilaterally. Sacral spine : Severe tenderness over the Sacroiliac joint: right side / left side Range of motion: Flexion of the lumbar spine <60 degrees Range of motion: Extension of the lumbar spine <20 degrees Gaenslen's Test positive Jose Luis's Test positive Negar test: positive right side / left side Thigh Thrust Test Sacral Thrust Test Assessment/ Plan : Lumbar DDD Recommendation of medication management. [place] 5/325mg #120 w 1 RF. Use, side effects, adverse reactions and safe storage discussed. UDS to be collected today 11/07/22. Opiate & Narcotic agreement up to date. All questions answered. I have spent greater than 30 minutes on patient care today. Dr Alvarado was available by phone for the evaluation of this patient. The time was used to review the medical records including relevant urine studies and Prescription history (MAPs), review of the available imaging, evaluation and examination of the patient, coordination of care with the medical staff and if applicable referring physicians, as well as creation of the medical record PQRS Narrative: Smoking Status Former smoker Hx Alcohol Use (MH) No Home Medications: Ambulatory Orders Pregabalin [Lyrica] 100 mg PO TID 09/29/15 Albuterol Sulfate [Albuterol Sulfate Hfa] 2 puff PO RT-Q6H PRN 11/04/22 Azelastine HCl [Optivar 0.05% Ophth Soln] 1 drop BOTH EYES BID PRN 11/04/22 Ipratropium [place] [Ipratropium [place] 0.03%] 1 spray NASAL QID 11/04/22 Latanoprost [Latanoprost 0.005%] 1 drop BOTH EYES HS 11/04/22 Rosuvastatin Calcium 5 mg PO DAILY 11/04/22 Aspirin 81 mg PO DAILY #30 tab 11/05/22 HYDROcodone/APAP 5-325MG [[place] 5-325] 1 tab PO Q6HR PRN 30 Days #120 tab 11/07/22 HYDROcodone/APAP 5-325MG [[place] 5-325] 1 tab PO Q6HR PRN 30 Days #120 tab 11/07/22 Controlled Substance Measures - Controlled Substance Measures Is patient prescribed a controlled substance at discharge?: Yes When asked, does pt state using other controlled substances?: Yes If prescribed controlled substance>3 days was MAPS reviewed?: Yes
[2022-11-07 14:29] VITALS: BP 153/86; PULSE 86; RESP 16; TEMP 98
== END ==
LOC: PNWHC3 13:02
PROVIDERS: ATTEND Specialist
DX: M51.36 Other intervertebral disc degeneration, lumbar region (principal); Z02.83 Encounter for blood-alcohol and blood-drug test; Z87.891 Personal history of nicotine dependence; Z88.0 Allergy status to penicillin; Z88.5 Allergy status to narcotic agent; Z79.82 Long term (current) use of aspirin
CPT/HCPCS: 99211

== ENCOUNTER → 2022-11-07 | Outpatient (CLI) | payer MEDICARE, BC ==
[2022-11-08 10:39] LABS: Serum Amphetamine Negative; Serum Barbiturates Negative; Serum Benzodiazepine Negative; Serum Cocaine Negative; Serum Methadone Negative; Serum Opiates Negative; Serum Phencyclidine Negative; Serum Propoxyphene Negative; Serum THC (Cannabis) Negative
== END | disposition home or self-care (01) ==
LOC: LABWHC1 13:40
PROVIDERS: ATTEND Physician Assistant Medical
DX: Z02.83 Encounter for blood-alcohol and blood-drug test (principal)
CPT/HCPCS: 36415; 80307

== ENCOUNTER → 2023-01-02 | Outpatient (CLI) | payer MEDICARE, BC ==
[2023-01-02 14:27] VITALS: BP 161/70; PULSE 78; RESP 16; TEMP 98
--- NOTE | 2023-01-02 15:00 | P.PAINPG ---
PQRS Measure Charge Sheet Comment: HISTORY OF PRESENT ILLNESS: 77 yr old female w daughter at side presents today w severe and chronic LBP x 30 yrs secondary to DDD, spondylosis and facet arthropathy without myelopathy for medication refills. Tox screen from 11/07/22 was negative though pt obtained [place] 5/325mg #120 on 10/28/22. Pt states pain level is provoked at 6/10 in intensity, constant, localized in the lower lumbar spine, achy in character w shooting pain towards the BLEs. Pain is provoked by over activity. Pain is alleviated by use of a cane for ambulatory assistance, medications, PT from 10 yrs ago, massage therapy from 10 yrs ago, repositioning and rest. UDS from 11/07/22 negative for opiates so will reduce quantity from #120 to #90. Pt admitted she takes medication on & off. Interventional procedures include UNKNOWN Medications include [place] 5/325mg #120, Lyrica, Tyl, Ibu, AsperCreme, Voltaren gel REVIEW OF ORGAN SYSTEMS: CONSTITUTIONAL: No fevers or chills. No recent weight loss. NEUROLOGICAL: + numbness and tingling along the distal extremities. No seizure disorders or headaches. MUSCULOSKELETAL: + pain PSYCHIATRIC: Denies current depression or suicidal thoughts. Physical Examinations : Constitutional : Cooperative , not in acute distress . Neurologic : Cranial nerve II to XII intact. No focal neurological deficits. Psychiatric : alert & oriented x 3. Matching mood & appropriate affect. Judgment & insight intact. Musculoskeletal : Cervical Spine Motor strength in the deltoid and biceps: Normal right side. Normal Left side Motor strength biceps and the wrist extensors: Normal right side . Normal left side Motor strength in the triceps muscle: Normal right side. Normal left side Deep tendon reflexes: Normal at the biceps. Normal at Brachioradialis. Normal at triceps Vertebral body tenderness to deep palpation over Cervical facet loading test: positive bilaterally Spurling test: positive bilaterally Neck distraction test: positive bilaterally Navya sign: positive bilaterally Lumbar spine Motor strength lower extremities ,thigh and legs 5/5 Right side , 5/5 Left side Deep tendon reflexes : Normal Knee Jerk. Normal Ankle Jerk Vertebral body tenderness over Castellanos Test positive Lumbar facet Loading Test: positive Right / positive Left Range of motion of the lumbar spine Flexion 30 degrees, extension 10 degrees Straight Leg Raise test: Left/ Right positive at degree Negar test: positive right / positive left. Severe tenderness over the Sacroiliac joint on the Right / Left sides Gaenslen test: positive bilaterally Seated flexion test: positive bilaterally. Sacral spine : Severe tenderness over the Sacroiliac joint: right side / left side Range of motion: Flexion of the lumbar spine <60 degrees Range of motion: Extension of the lumbar spine <20 degrees Gaenslen's Test positive Jose Luis's Test positive Negar test: positive right side / left side Thigh Thrust Test Sacral Thrust Test Assessment/ Plan : Lumbar DDD Recommendation of medication management. [place] 5/325mg #90 w 1 RF. UDS from 11/07/22 negative for opiates. Use, side effects, adverse reactions and safe storage discussed. UDS to be collected today 11/07/22. Opiate & Narcotic agreement up to date. All questions answered. I have spent greater than 30 minutes on patient care today. Dr Alvarado was available by phone for the evaluation of this patient. The time was used to review the medical records including relevant urine studies and Prescription history (MAPs), review of the available imaging, evaluation and examination of the patient, coordination of care with the medical staff and if applicable referring physicians, as well as creation of the medical record PQRS Narrative: Smoking Status Former smoker Hx Alcohol Use (MH) No Home Medications: Ambulatory Orders Pregabalin [Lyrica] 100 mg PO TID 09/29/15 Albuterol Sulfate [Albuterol Sulfate Hfa] 2 puff PO RT-Q6H PRN 11/04/22 Azelastine HCl [Optivar 0.05% Ophth Soln] 1 drop BOTH EYES BID PRN 11/04/22 Ipratropium [place] [Ipratropium [place] 0.03%] 1 spray NASAL QID 11/04/22 Latanoprost [Latanoprost 0.005%] 1 drop BOTH EYES HS 11/04/22 Rosuvastatin Calcium 5 mg PO DAILY 11/04/22 Aspirin 81 mg PO DAILY #30 tab 11/05/22 HYDROcodone/APAP 5-325MG [[place] 5-325] 1 tab PO Q8HR PRN 30 Days #90 tab 01/02/23 HYDROcodone/APAP 5-325MG [[place] 5-325] 1 tab PO TID PRN 30 Days #90 tab 01/02/23 Controlled Substance Measures - Controlled Substance Measures Is patient prescribed a controlled substance at discharge?: Yes When asked, does pt state using other controlled substances?: Yes If prescribed controlled substance>3 days was MAPS reviewed?: Yes If Rx opioid, was Start Talking consent form obtained?: Yes Was information provided regarding opioid addiction?: Yes
== END ==
LOC: PNWHC3 13:02
PROVIDERS: ATTEND Specialist
DX: M51.36 Other intervertebral disc degeneration, lumbar region (principal); Z87.891 Personal history of nicotine dependence; Z79.82 Long term (current) use of aspirin; Z88.0 Allergy status to penicillin; Z88.5 Allergy status to narcotic agent
CPT/HCPCS: 99211

== ENCOUNTER → 2023-02-19 | Outpatient (CLI) | payer MEDICARE, BC ==
--- NOTE | 2023-02-19 13:35 | P.PAINPG ---
PQRS Measure Charge Sheet Comment: HISTORY OF PRESENT ILLNESS: A 78 yr old female w daughter at side presents today w severe and chronic LBP x 30 yrs secondary to DDD, spondylosis and facet arthropathy without myelopathy for medication refills. Pt states pain level is provoked at 6/10 in intensity, constant, localized in the lower lumbar spine, predominantly axial, achy in character w occasional shooting pain towards the BLEs. Pain is provoked by over activity. Pain is alleviated by use of a cane for ambulatory assistance, medications, PT from 10 yrs ago, massage therapy from 10 yrs ago, repositioning and rest. Pt admitted she takes medication on & off. Interventional procedures include UNKNOWN Medications include [place] 5/325mg #90, Lyrica, Tyl, Ibu, AsperCreme, Voltaren gel REVIEW OF ORGAN SYSTEMS: CONSTITUTIONAL: No fevers or chills. No recent weight loss. NEUROLOGICAL: + numbness and tingling along the distal extremities. No seizure disorders or headaches. MUSCULOSKELETAL: + pain PSYCHIATRIC: Denies current depression or suicidal thou ghts. Physical Examinations : Constitutional : Cooperative , not in acute distress . Neurologic : Cranial nerve II to XII intact. No focal neurological deficits. Psychiatric : alert & oriented x 3. Matching mood & appropriate affect. Judgment & insight intact. Musculoskeletal : Cervical Spine Motor strength in the deltoid and biceps: Normal right side. Normal Left side Motor strength biceps and the wrist extensors: Normal right side . Normal left side Motor strength in the triceps muscle: Normal right side. Normal left side Deep tendon reflexes: Normal at the biceps. Normal at Brachioradialis. Normal at triceps Vertebral body tenderness to deep palpation over Cervical facet loading test: positive bilaterally Spurling test: positive bilaterally Neck distraction test: positive bilaterally Navya sign: positive bilaterally Lumbar spine Motor strength lower extremities ,thigh and legs 5/5 Right side , 5/5 Left side Deep tendon reflexes : Normal Knee Jerk. Normal Ankle Jerk Vertebral body tenderness over Castellanos Test positive Lumbar facet Loading Test: positive Right / positive Left Range of motion of the lumbar spine Flexion 30 degrees, extension 10 degrees Straight Leg Raise test: Left/ Right positive at degree Negar test: positive right / positive left. Severe tenderness over the Sacroiliac joint on the Right / Left sides Gaenslen test: positive bilaterally Seated flexion test: positive bilaterally. Sacral spine : Severe tenderness over the Sacroiliac joint: right side / left side Range of motion: Flexion of the lumbar spine <60 degrees Range of motion: Extension of the lumbar spine <20 degrees Gaenslen's Test positive Jose Luis's Test positive Negar test: positive right side / left side Thigh Thrust Test Sacral Thrust Test Assessment/ Plan : Lumbar DDD Recommendation of medication management. [place] 5/325mg #90 w 1 RF. UDS from 11/07/22 negative for opiates. Use, side effects, adverse reactions and safe storage discussed. UDS fr 11/07/22 reviewed and consistent. Opiate & Narcotic agreement up to date. All questions answered. I have spent greater than 30 minutes on patient care today. Dr Alvarado was available by phone for the evaluation of this patient. The time was used to review the medical records including relevant urine studies and Prescription history (MAPs), review of the available imaging, evaluation and examination of the patient, coordination of care with the medical staff and if applicable referring physicians, as well as creation of the medical record PQRS Narrative: Smoking Status Former smoker Hx Alcohol Use (MH) No Home Medications: Ambulatory Orders Pregabalin [Lyrica] 100 mg PO TID 09/29/15 Albuterol Sulfate [Albuterol Sulfate Hfa] 2 puff PO RT-Q6H PRN 11/04/22 Azelastine HCl [Optivar 0.05% Ophth Soln] 1 drop BOTH EYES BID PRN 11/04/22 Ipratropium [place] [Ipratropium [place] 0.03%] 1 spray NASAL QID 11/04/22 Latanoprost [Latanoprost 0.005%] 1 drop BOTH EYES HS 11/04/22 Rosuvastatin Calcium 5 mg PO DAILY 11/04/22 Aspirin 81 mg PO DAILY #30 tab 11/05/22 HYDROcodone/APAP 5-325MG [[place] 5-325] 1 tab PO Q8HR PRN 30 Days #90 tab 1 04/22/22 HYDROcodone/APAP 5-325MG [[place] 5-325] 1 tab PO TID PRN 30 Days #90 tab 02/19/23 Controlled Substance Measures - Controlled Substance Measures Is patient prescribed a controlled substance at discharge?: Yes When asked, does pt state using other controlled substances?: Yes If prescribed controlled substance>3 days was MAPS reviewed?: Yes
[2023-02-19 13:39] VITALS: BP 154/90; PULSE 90; RESP 16
== END ==
LOC: PNWHC3 13:05
PROVIDERS: ATTEND Specialist
DX: M47.816 Spondylosis without myelopathy or radiculopathy, lumbar region (principal); M51.36 Other intervertebral disc degeneration, lumbar region; Z87.891 Personal history of nicotine dependence; Z88.0 Allergy status to penicillin; Z88.5 Allergy status to narcotic agent; Z79.82 Long term (current) use of aspirin
CPT/HCPCS: 80307; G0463; 99212

== ENCOUNTER → 2023-04-17 | Outpatient (CLI) | payer MEDICARE, BC ==
[2023-04-17 13:47] VITALS: BP 106/74; PULSE 92; RESP 16; TEMP 97.1
--- NOTE | 2023-04-17 14:36 | P.PAINPG ---
PQRS Measure Charge Sheet Comment: HISTORY OF PRESENT ILLNESS: A 78 yr old female w daughter at side presents today w severe and chronic LBP x 30 yrs secondary to DDD, spondylosis and facet arthropathy without myelopathy for medication refills. Pt states pain level is provoked at 6/10 in intensity, constant, localized in the lower lumbar spine, predominantly axial, achy in character w occasional shooting pain towards the BLEs. Pain is provoked by over activity. Pain is alleviated by use of a cane for ambulatory assistance, medications, PT from 10 yrs ago, massage therapy from 10 yrs ago, repositioning and rest. Pt admitted she takes medication on & off. Interventional procedures include UNKNOWN Medications include [place] 5/325mg #90, Lyrica, Tyl, Ibu, AsperCreme, Voltaren gel REVIEW OF ORGAN SYSTEMS: CONSTITUTIONAL: No fevers or chills. No recent weight loss. NEUROLOGICAL: + numbness and tingling along the distal extremities. No seizure disorders or headaches. MUSCULOSKELETAL: + pain PSYCHIATRIC: Denies current depression or suicidal thou ghts. Physical Examinations : Constitutional : Cooperative , not in acute distress . Neurologic : Cranial nerve II to XII intact. No focal neurological deficits. Psychiatric : alert & oriented x 3. Matching mood & appropriate affect. Judgment & insight intact. Musculoskeletal : Cervical Spine Motor strength in the deltoid and biceps: Normal right side. Normal Left side Motor strength biceps and the wrist extensors: Normal right side . Normal left side Motor strength in the triceps muscle: Normal right side. Normal left side Deep tendon reflexes: Normal at the biceps. Normal at Brachioradialis. Normal at triceps Vertebral body tenderness to deep palpation over Cervical facet loading test: positive bilaterally Spurling test: positive bilaterally Neck distraction test: positive bilaterally Navya sign: positive bilaterally Lumbar spine Motor strength lower extremities ,thigh and legs 5/5 Right side , 5/5 Left side Deep tendon reflexes : Normal Knee Jerk. Normal Ankle Jerk Vertebral body tenderness over Castellanos Test positive Lumbar facet Loading Test: positive Right / positive Left Range of motion of the lumbar spine Flexion 30 degrees, extension 10 degrees Straight Leg Raise test: Left/ Right positive at degree Negar test: positive right / positive left. Severe tenderness over the Sacroiliac joint on the Right / Left sides Gaenslen test: positive bilaterally Seated flexion test: positive bilaterally. Sacral spine : Severe tenderness over the Sacroiliac joint: right side / left side Range of motion: Flexion of the lumbar spine <60 degrees Range of motion: Extension of the lumbar spine <20 degrees Gaenslen's Test positive Jose Luis's Test positive Negar test: positive right side / left side Thigh Thrust Test Sacral Thrust Test Assessment/ Plan : Lumbar DDD Recommendation of medication management. [place] 5/325mg #90 and Diclofenac gel w 1 RF. UDS from 11/07/22 negative for opiates so reduced quantity from #120 to #90. Use, side effects, adverse reactions and safe storage discussed. Opiate & Narcotic agreement up to date. All questions answered. I have spent greater than 30 minutes on patient care today. Dr Alvarado was available by phone for the evaluation of this patient. The time was used to review the medical records including relevant urine studies and Prescription history (MAPs), review of the available imaging, evaluation and examination of the patient, coordination of care with the medical staff and if applicable referring physicians, as well as creation of the medical record PQRS Narrative: Smoking Status Former smoker Hx Alcohol Use (MH) No Home Medications: Ambulatory Orders Pregabalin [Lyrica] 100 mg PO TID 09/29/15 Albuterol Sulfate [Albuterol Sulfate Hfa] 2 puff PO RT-Q6H PRN 11/04/22 Azelastine HCl [Optivar 0.05% Ophth Soln] 1 drop BOTH EYES BID PRN 11/04/22 Ipratropium [place] [Ipratropium [place] 0.03%] 1 spray NASAL QID 11/04/22 Latanoprost [Latanoprost 0.005%] 1 drop BOTH EYES HS 11/04/22 Rosuvastatin Calcium 5 mg PO DAILY 11/04/22 Aspirin 81 mg PO DAILY #30 tab 11/05/22 Diclofenac Sodium Gel [Voltaren 1% Gel] 100 gm TOPICAL BID 30 Days #1 each 04/17/23 HYDROcodone/APAP 5-325MG [[place] 5-325] 1 tab PO Q8HR PRN 30 Days #90 tab 04/17/23 HYDROcodone/APAP 5-325MG [[place] 5-325] 1 tab PO TID PRN 30 Days #90 tab 04/17/23 Controlled Substance Measures - Controlled Substance Measures Is patient prescribed a controlled substance at discharge?: Yes When asked, does pt state using other controlled substances?: Yes If prescribed controlled substance>3 days was MAPS reviewed?: Yes
== END ==
LOC: PNWHC3 13:10
PROVIDERS: ATTEND Specialist
DX: M51.36 Other intervertebral disc degeneration, lumbar region (principal); Z79.82 Long term (current) use of aspirin; Z88.0 Allergy status to penicillin; Z88.5 Allergy status to narcotic agent; Z87.891 Personal history of nicotine dependence
CPT/HCPCS: 99211

== ENCOUNTER → 2023-06-12 | Outpatient (CLI) | payer MEDICARE, BC ==
--- NOTE | 2023-06-12 13:52 | P.PAINPG ---
PQRS Measure Charge Sheet Comment: HISTORY OF PRESENT ILLNESS: A 78 yr old female w daughter at side presents today w severe and chronic LBP x 30 yrs secondary to DDD, spondylosis and facet arthropathy without myelopathy for medication refills. Pt states pain level is provoked at 6/10 in intensity, constant, localized in the lower lumbar spine, predominantly axial, achy in character w occasional shooting pain towards the BLEs. Pain is provoked by over activity. Pain is alleviated by use of a cane for ambulatory assistance, medications, PT from 10 yrs ago, massage therapy from 10 yrs ago, repositioning and rest. Pt admitted she takes medication on & off. Interventional procedures include UNKNOWN Medications include [place] 5/325mg #90, Lyrica, Tyl, Ibu, AsperCreme, Voltaren gel REVIEW OF ORGAN SYSTEMS: CONSTITUTIONAL: No fevers or chills. No recent weight loss. NEUROLOGICAL: + numbness and tingling along the distal extremities. No seizure disorders or headaches. MUSCULOSKELETAL: + pain PSYCHIATRIC: Denies current depression or suicidal thou ghts. Physical Examinations : Constitutional : Cooperative , not in acute distress . Neurologic : Cranial nerve II to XII intact. No focal neurological deficits. Psychiatric : alert & oriented x 3. Matching mood & appropriate affect. Judgment & insight intact. Musculoskeletal : Cervical Spine Motor strength in the deltoid and biceps: Normal right side. Normal Left side Motor strength biceps and the wrist extensors: Normal right side . Normal left side Motor strength in the triceps muscle: Normal right side. Normal left side Deep tendon reflexes: Normal at the biceps. Normal at Brachioradialis. Normal at triceps Vertebral body tenderness to deep palpation over Cervical facet loading test: positive bilaterally Spurling test: positive bilaterally Neck distraction test: positive bilaterally Navya sign: positive bilaterally Lumbar spine Motor strength lower extremities ,thigh and legs 5/5 Right side , 5/5 Left side Deep tendon reflexes : Normal Knee Jerk. Normal Ankle Jerk Vertebral body tenderness over Castellanos Test positive Lumbar facet Loading Test: positive Right / positive Left Range of motion of the lumbar spine Flexion 30 degrees, extension 10 degrees Straight Leg Raise test: Left/ Right positive at degree Negar test: positive right / positive left. Severe tenderness over the Sacroiliac joint on the Right / Left sides Gaenslen test: positive bilaterally Seated flexion test: positive bilaterally. Sacral spine : Severe tenderness over the Sacroiliac joint: right side / left side Range of motion: Flexion of the lumbar spine <60 degrees Range of motion: Extension of the lumbar spine <20 degrees Gaenslen's Test positive Jose Luis's Test positive Negar test: positive right side / left side Thigh Thrust Test Sacral Thrust Test Assessment/ Plan : Lumbar DDD Recommendation of medication management. [place] 5/325mg #90 and Diclofenac gel w 1 RF. Opiate & Narcotic agreement up to date. All questions answered. I have spent greater than 30 minutes on patient care today. Dr Alvarado was available by phone for the evaluation of this patient. The time was used to review the medical records including relevant urine studies and Prescription history (MAPs), review of the available imaging, evaluation and examination of the patient, coordination of care with the medical staff and if applicable referring physicians, as well as creation of the medical record PQRS Narrative: Smoking Status Former smoker Hx Alcohol Use (MH) No Home Medications: Ambulatory Orders Pregabalin [Lyrica] 100 mg PO TID 09/29/15 Albuterol Sulfate [Albuterol Sulfate Hfa] 2 puff PO RT-Q6H PRN 11/04/22 Azelastine HCl [Optivar 0.05% Ophth Soln] 1 drop BOTH EYES BID PRN 11/04/22 Ipratropium [place] [Ipratropium [place] 0.03%] 1 spray NASAL QID 11/04/22 Latanoprost [Latanoprost 0.005%] 1 drop BOTH EYES HS 11/04/22 Rosuvastatin Calcium 5 mg PO DAILY 11/04/22 Aspirin 81 mg PO DAILY #30 tab 11/05/22 Diclofenac Sodium Gel [Voltaren 1% Gel] 100 gm TOPICAL BID 30 Days #1 each 06/12/23 HYDROcodone/APAP 5-325MG [[place] 5-325] 1 tab PO Q8HR PRN 30 Days #90 tab 06/12/23 HYDROcodone/APAP 5-325MG [[place] 5-325] 1 tab PO TID PRN 30 Days #90 tab 06/12/23 HYDROcodone/APAP 5-325MG [[place] 5-325] 1 tab PO TID PRN 30 Days #90 tab 06/12/23 Controlled Substance Measures - Controlled Substance Measures Is patient prescribed a controlled substance at discharge?: Yes When asked, does pt state using other controlled substances?: No If prescribed controlled substance>3 days was MAPS reviewed?: Yes
[2023-06-12 13:53] VITALS: BP 132/72; PULSE 82; RESP 15; TEMP 98.7
== END ==
LOC: PNWHC3 13:06
PROVIDERS: ATTEND Specialist
DX: M47.816 Spondylosis without myelopathy or radiculopathy, lumbar region (principal); M51.36 Other intervertebral disc degeneration, lumbar region; Z88.0 Allergy status to penicillin; Z88.5 Allergy status to narcotic agent; Z87.891 Personal history of nicotine dependence
CPT/HCPCS: 99211

== ENCOUNTER → 2023-08-07 | Outpatient (CLI) | payer MEDICARE, BC ==
[2023-08-07 13:59] VITALS: BP 170/76; PULSE 76; RESP 16
--- NOTE | 2023-08-12 08:06 | P.PAINPG ---
PQRS Measure Charge Sheet Comment: HISTORY OF PRESENT ILLNESS: A 78 yr old female w daughter at side presents today w severe and chronic LBP x 30 yrs secondary to DDD, spondylosis and facet arthropathy without myelopathy for medication refills. Pt states pain level is provoked at 6/10 in intensity, constant, localized in the lower lumbar spine, predominantly axial, achy in character w occasional shooting pain towards the BLEs. Pain is provoked by over activity. Pain is alleviated by use of a cane for ambulatory assistance, medications, PT from 10 yrs ago, massage therapy from 10 yrs ago, repositioning and rest. Interventional procedures include UNKNOWN Medications include [place] 5/325mg #90, Lyrica, Tyl, Ibu, AsperCreme, Voltaren ge l REVIEW OF ORGAN SYSTEMS: CONSTITUTIONAL: No fevers or chills. No recent weight loss. NEUROLOGICAL: + numbness and tingling along the distal extremities. No seizure disorders or headaches. MUSCULOSKELETAL: + pain PSYCHIATRIC: Denies current depression or suicidal thoughts. Physical Examinations : Constitutional : Cooperative , not in acute distress . Neurologic : Cranial nerve II to XII intact. No focal neurological deficits. Psychiatric : alert & oriented x 3. Matching mood & appropriate affect. Judgment & insight intact. Musculoskeletal : Cervical Spine Motor strength in the deltoid and biceps: Normal right side. Normal Left side Motor strength biceps and the wrist extensors: Normal right side . Normal left side Motor strength in the triceps muscle: Normal right side. Normal left side Deep tendon reflexes: Normal at the biceps. Normal at Brachioradialis. Normal at triceps Vertebral body tenderness to deep palpation over Cervical facet loading test: positive bilaterally Spurling test: positive bilaterally Neck distraction test: positive bilaterally Navya sign: positive bilaterally Lumbar spine Motor strength lower extremities ,thigh and legs 5/5 Right side , 5/5 Left side Deep tendon reflexes : Normal Knee Jerk. Normal Ankle Jerk Vertebral body tenderness over Castellanos Test positive Lumbar facet Loading Test: positive Right / positive Left Range of motion of the lumbar spine Flexion 30 degrees, extension 10 degrees Straight Leg Raise test: Left/ Right positive at degree Negar test: positive right / positive left. Severe tenderness over the Sacroiliac joint on the Right / Left sides Gaenslen test: positive bilaterally Seated flexion test: positive bilaterally. Sacral spine : Severe tenderness over the Sacroiliac joint: right side / left side Range of motion: Flexion of the lumbar spine <60 degrees Range of motion: Extension of the lumbar spine <20 degrees Gaenslen's Test positive Jose Luis's Test positive Negar test: positive right side / left side Thigh Thrust Test Sacral Thrust Test Assessment/ Plan : Lumbar DDD Recommendation of medication management. [place] 5/325mg #90 and Diclofenac gel w 2 RF. Add Robaxin 500mg #90 w 2 RF. Use, side effects, adverse reactions, safe storage discussed. Opiate & Narcotic agreement up to date. All questions answered. I have spent greater than 30 minutes on patient care today. Dr Alvarado was available by phone for the evaluation of this patient. The time was used to review the medical records including relevant urine studies and Prescription history (MAPs), review of the available imaging, evaluation and examination of the patient, coordination of care with the medical staff and if applicable referring physicians, as well as creation of the medical record PQRS Narrative: Smoking Status Former smoker Hx Alcohol Use (MH) No Home Medications: Ambulatory Orders Pregabalin [Lyrica] 100 mg PO TID 09/29/15 Albuterol Sulfate [Albuterol Sulfate Hfa] 2 puff PO RT-Q6H PRN 11/04/22 Azelastine HCl [Optivar 0.05% Ophth Soln] 1 drop BOTH EYES BID PRN 11/04/22 Ipratropium [place] [Ipratropium [place] 0.03%] 1 spray NASAL QID 11/04/22 Latanoprost [Latanoprost 0.005%] 1 drop BOTH EYES HS 11/04/22 Rosuvastatin Calcium 5 mg PO DAILY 11/04/22 Aspirin 81 mg PO DAILY #30 tab 11/05/22 Diclofenac Sodium Gel [Voltaren 1% Gel] 100 gm TOPICAL BID 30 Days #1 each 08/07/23 HYDROcodone/APAP 5-325MG [[place] 5-325] 1 tab PO Q8HR PRN 30 Days #90 tab 08/07/23 HYDROcodone/APAP 5-325MG [[place] 5-325] 1 tab PO TID PRN 30 Days #90 tab 08/07/23 HYDROcodone/APAP 5-325MG [[place] 5-325] 1 tab PO TID PRN 30 Days #90 tab 08/07/23 methocarbamoL [Robaxin] 500 mg PO TID PRN 30 Days #90 tab 08/07/23 Controlled Substance Measures - Controlled Substance Measures Is patient prescribed a controlled substance at discharge?: Yes When asked, does pt state using other controlled substances?: Yes If prescribed controlled substance>3 days was MAPS reviewed?: Yes
== END ==
LOC: PNWHC3 12:58
PROVIDERS: ATTEND Specialist
DX: M51.36 Other intervertebral disc degeneration, lumbar region (principal); Z87.891 Personal history of nicotine dependence; Z88.0 Allergy status to penicillin; Z88.5 Allergy status to narcotic agent
CPT/HCPCS: 99211

== ENCOUNTER → 2023-10-24 | Outpatient (CLI) | payer MEDICARE, BC | LOC: PNWHC3 12:30 | PROVIDERS: ATTEND Specialist | DX: M54.16 Radiculopathy, lumbar region (principal); Z88.0 Allergy status to penicillin; Z88.5 Allergy status to narcotic agent; Z87.891 Personal history of nicotine dependence | CPT/HCPCS: 99211 ==

== ENCOUNTER → 2023-12-19 | Outpatient (CLI) | payer MEDICARE, BC ==
[2023-12-20 13:28] LABS: Serum Amphetamine Negative; Serum Barbiturates Negative; Serum Benzodiazepine Negative; Serum Cocaine Negative; Serum Methadone Negative; Serum Opiates Negative; Serum Phencyclidine Negative; Serum Propoxyphene Negative; Serum THC (Cannabis) Negative
== END | disposition home or self-care (01) ==
LOC: LABWHC1 13:00
PROVIDERS: ATTEND Physician Assistant Medical
DX: Z02.83 Encounter for blood-alcohol and blood-drug test (principal)
CPT/HCPCS: 36415; 80307

== ENCOUNTER → 2023-12-19 | Outpatient (CLI) | payer MEDICARE, BC ==
[2023-12-19 13:04] VITALS: BP 142/83; PULSE 71; RESP 16; TEMP 97.1
--- NOTE | 2023-12-19 13:59 | P.PAINPG ---
PQRS Measure Charge Sheet Comment: HISTORY OF PRESENT ILLNESS: A 78 yr old female presents today w severe and chronic LBP x 30 yrs secondary to radiculopathy, spondylosis and facet arthropathy without myelopathy for medication refills. Pt states pain level is provoked at 7 /10 in intensity, constant, localized in the lower lumbar spine, predominantly axial, achy in character w occasional shooting pain towards the BLEs. Pain is provoked by over activity. Pain is alleviated by use of a cane for ambulatory assistance, medications, PT from 10 yrs ago, massage therapy from 10 yrs ago, repositioning and rest. Interventional procedures include UNKNOWN Medications include [place] 7.5/325mg #90, Lyrica, Tyl, Ibu, AsperCreme, Voltaren gel REVIEW OF ORGAN SYSTEMS: CONSTITUTIONAL: No fevers or chills. No recent weight loss. NEUROLOGICAL: + numbness and tingling along the distal extremities. No seizure disorders or headaches. MUSCULOSKELETAL: + pain PSYCHIATRIC: Denies current depression or suicidal thoughts. Physical Examinations : Constitutional : Cooperative , not in acute distress . Neurologic : Cranial nerve II to XII intact. No focal neurological deficits. Psychiatric : alert & oriented x 3. Matching mood & appropriate affect. Judgment & insight intact. Musculoskeletal : Cervical Spine Motor strength in the deltoid and biceps: Normal right side. Normal Left side Motor strength biceps and the wrist extensors: Normal right side . Normal left side Motor strength in the triceps muscle: Normal right side. Normal left side Deep tendon reflexes: Normal at the biceps. Normal at Brachioradialis. Normal at triceps Vertebral body tenderness to deep palpation over Cervical facet loading test: positive bilaterally Spurling test: positive bilaterally Neck distraction test: positive bilaterally Navya sign: positive bilaterally Lumbar spine Motor strength lower extremities ,thigh and legs 5/5 Right side , 5/5 Left side Deep tendon reflexes : Normal Knee Jerk. Normal Ankle Jerk Vertebral body tenderness over Castellanos Test positive Lumbar facet Loading Test: positive Right / positive Left Range of motion of the lumbar spine Flexion 30 degrees, extension 10 degrees Straight Leg Raise test: Left/ Right positive at degree Negar test: positive right / positive left. Severe tenderness over the Sacroiliac joint on the Right / Left sides Gaenslen test: positive bilaterally Seated flexion test: positive bilaterally. Sacral spine : Severe tenderness over the Sacroiliac joint: right side / left side Range of motion: Flexion of the lumbar spine <60 degrees Range of motion: Extension of the lumbar spine <20 degrees Gaenslen's Test positive Jose Luis's Test positive Negar test: positive right side / left side Thigh Thrust Test Sacral Thrust Test Assessment/ Plan : Lumbar radiculopathy Recommendation of medication management. [place] 7.5/325mg #90 w 2 RF. UDS from 02/19/23 reviewed and consistent. Use, side effects, adverse reactions, safe storage discussed. Renew Opiate & Narcotic agreement and collect Blood Tox Screen 12/19/23. All questions answered. I have spent greater than 30 minutes on patient care today. Dr Alvarado was available by phone for the evaluation of this patient. The time was used to review the medical records including relevant urine studies and Prescription history (MAPs), review of the available imaging, evaluation and examination of the patient, coordination of care with the medical staff and if applicable referring physicians, as well as creation of the medical record PQRS Narrative: Smoking Status Former smoker Hx Alcohol Use (MH) No Home Medications: Ambulatory Orders Pregabalin [Lyrica] 100 mg PO TID 09/29/15 Albuterol Sulfate [Albuterol Sulfate Hfa] 2 puff PO RT-Q6H PRN 11/04/22 Azelastine HCl [Optivar 0.05% Ophth Soln] 1 drop BOTH EYES BID PRN 11/04/22 Ipratropium [place] [Ipratropium [place] 0.03%] 1 spray NASAL QID 11/04/22 Latanoprost [Latanoprost 0.005%] 1 drop BOTH EYES HS 11/04/22 Rosuvastatin Calcium 5 mg PO DAILY 11/04/22 Aspirin 81 mg PO DAILY #30 tab 11/05/22 Diclofenac Sodium Gel [Voltaren 1% Gel] 100 gm TOPICAL BID 30 Days #1 each 08/07/23 methocarbamoL [Robaxin] 500 mg PO TID PRN 30 Days #90 tab 08/07/23 HYDROcodone/APAP 5-325MG [[place] 5-325] 1 tab PO Q8HR PRN 30 Days #90 tab 12/19/23 HYDROcodone/APAP 5-325MG [[place] 5-325] 1 tab PO TID PRN 30 Days #90 tab 12/19/23 HYDROcodone/APAP 5-325MG [[place] 5-325] 1 tab PO TID PRN 30 Days #90 tab 12/19/23 Controlled Substance Measures - Controlled Substance Measures Is patient prescribed a controlled substance at discharge?: Yes When asked, does pt state using other controlled substances?: Yes If prescribed controlled substance>3 days was MAPS reviewed?: Yes If Rx opioid, was Start Talking consent form obtained?: Yes Was information provided regarding opioid addiction?: Yes
== END ==
LOC: PNWHC3 12:17
PROVIDERS: ATTEND Specialist
DX: M54.50 Low back pain, unspecified
CPT/HCPCS: 99211

== ENCOUNTER → 2024-03-12 | Outpatient (CLI) | payer MEDICARE, BC ==
[2024-03-12 12:48] VITALS: BP 107/76; PULSE 91; RESP 16; TEMP 97.3
--- NOTE | 2024-03-12 15:07 | P.PAINPG ---
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 She takes medications infrequently. Pt states pain level is provoked at 7 /10 in intensity, constant, localized in the lower lumbar spine, predominantly axial, achy in character w occasional shooting pain towards the BLEs. Pain is provoked by over activity. Pain is alleviated by use of a cane for ambulatory assistance, medications, PT from 10 yrs ago, massage therapy from 10 yrs ago, repositioning and rest. Blood tox screen 12/19/23 NEG for medications as pt takes infrequently. Interventional procedures include UNKNOWN Medications include [place] 7.5/325mg, Lyrica, Tyl, Ibu, AsperCreme, Voltaren gel REVIEW OF ORGAN SYSTEMS: CONSTITUTIONAL: No fevers or chills. No recent weight loss. NEUROLOGICAL: + numbness and tingling along the distal extremities. No seizure disorders or headaches. MUSCULOSKELETAL: + pain PSYCHIATRIC: Denies current depression or suicidal thoughts. Physical Examinations : Constitutional : Cooperative , not in acute distress . Neurologic : Cranial nerve II to XII intact. No focal neurological deficits. Psychiatric : alert & oriented x 3. Matching mood & appropriate affect. Judgment & insight intact. Musculoskeletal : Cervical Spine Motor strength in the deltoid and biceps: Normal right side. Normal Left side Motor strength biceps and the wrist extensors: Normal right side . Normal left side Motor strength in the triceps muscle: Normal right side. Normal left side Deep tendon reflexes: Normal at the biceps. Normal at Brachioradialis. Normal at triceps Vertebral body tenderness to deep palpation over Cervical facet loading test: positive bilaterally Spurling test: positive bilaterally Neck distraction test: positive bilaterally Navya sign: positive bilaterally Lumbar spine Motor strength lower extremities ,thigh and legs 5/5 Right side , 5/5 Left side Deep tendon reflexes : Normal Knee Jerk. Normal Ankle Jerk Vertebral body tenderness over Castellanos Test positive Lumbar facet Loading Test: positive Right / positive Left Range of motion of the lumbar spine Flexion 30 degrees, extension 10 degrees Straight Leg Raise test: Left/ Right positive at degree Negar test: positive right / positive left. Severe tenderness over the Sacroiliac joint on the Right / Left sides Gaenslen test: positive bilaterally Seated flexion test: positive bilaterally. Sacral spine : Severe tenderness over the Sacroiliac joint: right side / left side Range of motion: Flexion of the lumbar spine <60 degrees Range of motion: Extension of the lumbar spine <20 degrees Gaenslen's Test positive Jose Luis's Test positive Negar test: positive right side / left side Thigh Thrust Test Sacral Thrust Test Assessment/ Plan : Lumbar radiculopathy Recommendation of medication management. Reduce quantity of [place] 7.5/325mg #60 w 2 RF. Use, side effects, adverse reactions, safe storage discussed. Renew Opiate & Narcotic agreement. Blood Tox Screen 12/19/23 NEG for medications as pt takes infrequently. All questions answered. I have spent greater than 30 minutes on patient care today. Dr Alvarado was available by phone for the evaluation of this patient. The time was used to review the medical records including relevant urine studies and Prescription history (MAPs), review of the available imaging, evaluation and examination of the patient, coordination of care with the medical staff and if applicable referring physicians, as well as creation of the medical record - Pain Location Bilateral Lower Back Non-Pharmacological Interventions: Chiropractic Treatment, Heat, Ice, Inactivity, Massage, Physical Therapy, Position/Reposition Pharmacological Interventions: Epidural, Scheduled Medication, Topical Medication PQRS Narrative: Smoking Status Former smoker Blood Pressure 107/76 Pain Intensity [Bilateral 5 Lower Back] Scale Used Numeric (1 - 10) Hx Alcohol Use (MH) No Home Medications: Ambulatory Orders Pregabalin [Lyrica] 100 mg PO TID 09/29/15 Albuterol Sulfate [Albuterol Sulfate Hfa] 2 puff PO RT-Q6H PRN 11/04/22 Azelastine HCl [Optivar 0.05% Ophth Soln] 1 drop BOTH EYES BID PRN 11/04/22 Ipratropium [place] [Ipratropium [place] 0.03%] 1 spray NASAL QID 11/04/22 Latanoprost [Latanoprost 0.005%] 1 drop BOTH EYES HS 11/04/22 Rosuvastatin Calcium 5 mg PO DAILY 11/04/22 Aspirin 81 mg PO DAILY #30 tab 11/05/22 Diclofenac Sodium Gel [Voltaren 1% Gel] 100 gm TOPICAL BID 30 Days #1 each 08/07/23 methocarbamoL [Robaxin] 500 mg PO TID PRN 30 Days #90 tab 08/07/23 HYDROcodone/APAP 5-325MG [[place] 5-325] 1 tab PO Q8HR PRN 30 Days #90 tab 12/19/23 HYDROcodone/APAP 5-325MG [[place] 5-325] 1 tab PO TID PRN 30 Days #90 tab 12/19/23 HYDROcodone/APAP 5-325MG [[place] 5-325] 1 tab PO TID PRN 30 Days #90 tab 12/19/23 Controlled Substance Measures - Controlled Substance Measures Is patient prescribed a controlled substance at discharge?: Yes When asked, does pt state using other controlled substances?: Yes If prescribed controlled substance>3 days was MAPS reviewed?: Yes
== END ==
LOC: PNWHC3 12:32
PROVIDERS: ATTEND Specialist
DX: M54.16 Radiculopathy, lumbar region (principal); G89.29 Other chronic pain; Z88.0 Allergy status to penicillin; Z88.8 Allergy status to other drugs, medicaments and biological substances; Z87.891 Personal history of nicotine dependence
CPT/HCPCS: 99211